=== PATIENT | male | born 1940 | race Caucasian/White ===

== ENCOUNTER 2019-01-21 06:29 | Inpatient (IN) ==
[2019-01-21] MEDS ORDERED: Amiodarone 150 MG in D5% in Water 100 ML IVPB ONE (06:43)
--- NOTE | 2019-01-21 06:45 | Emergency Department Note ---
Disposition Condition: Fair Arrhythmia/Palpitations HPI - General Chief Complaint: ED Arrhythmia/Palpitations Stated Complaint: poss runs of V tach during sleep study Time Seen by Provider: 01/21/19 06:32 - Related Data Allergies Allergy/AdvReac Type Severity Reaction Status Date / Time No Known Allergies Allergy Unverified 01/21/19 03:33 Past Medical History - Past Medical History Medical history: Reports: other - Social History Smoking Status: Never smoker Smokeless Tobacco Status: No Alcohol use: Reports: none
[2019-01-21] MEDS ORDERED: Amiodarone Premix 150 MG/100 ML BAG IVPB ONE (06:46)
[2019-01-21] MEDS ORDERED: Amiodarone Premix 360 MG/200 ML BAG IVC ONE (06:47)
--- NOTE | 2019-01-21 06:49 | Emergency Department Note ---
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 He reports having to have a repeat sleep study done for his new insurance so he can keep his c-pap machine. He slept about 2 or 3 hours and was awakened by the tech who said he was going to be taken to the ED because his heart was "beating funny." He denies any complaints. Onset (ago): hour(s) (2AM per [facility]) Time: 02:00 Duration: intermittent Context: occurred during rest Arrhythmia History: other (none) Associated symptoms: Reports: denies other symptoms. Denies: chest pain, shortness of breath, syncope, near-syncope, nausea, vomiting, anxiety, diaphoresis, cough, paresthesias, muscle cramps Treatments prior to arrival: other (none) - Related Data Home Medications Medication Instructions Recorded Confirmed Alfuzosin HCl [Uroxatral] 10 mg PO DAILY 01/21/19 01/21/19 Aspirin [Lo-Dose Aspirin EC] 81 mg PO DAILY 01/21/19 01/21/19 Atorvastatin [Lipitor] 10 mg PO QPM 01/21/19 01/21/19 Cholecalciferol (D-3) [Vitamin D] 1,000 unit PO DAILY 01/21/19 01/21/19 Empagliflozin [Jardiance] 10 mg PO DAILY 01/21/19 01/21/19 Insulin DETEMIR [Levemir Flextouch] 40 units PO HS 01/21/19 01/21/19 Insulin LISPRO [Humalog Kwikpen 10 units PO QPM 01/21/19 01/21/19 U-100] Lisinopril-HCTZ 20-12.5 [Prinzide 1 tab PO DAILY 01/21/19 01/21/19 20-12.5] Metformin HCl 500 mg PO BID 01/21/19 01/21/19 Tamsulosin HCl [Flomax] 0.4 mg PO DAILY 01/21/19 01/21/19 Allergies Allergy/AdvReac Type Severity Reaction Status Date / Time No Known Allergies Allergy Unverified 01/21/19 21:41 All systems ED: reviewed and negative except as stated. Review of Systems: As Per HPI Constitutional: Denies: fever, chills, weakness, weight change, night sweats Eyes: Denies: vision change ENT ED: Denies: throat pain, congestion, dysphagia Cardiovascular: Denies: chest pain, palpitations, dyspnea on exertion, orthopnea, edema, syncope, paroxysmal nocturnal dyspnea Respiratory: Denies: cough, dyspnea, wheezes, hemoptysis, stridor, sputum production Gastrointestinal: Denies: abdominal pain, nausea, vomiting, diarrhea Musculoskeletal: Denies: back pain, neck pain, joint swelling, arthralgia Integumentary: Denies: rash Neurological: Denies: headache, weakness, numbness, paresthesias, confusion, vertigo Hematological/Lymphatic: Denies: easy bleeding, easy bruising Past Medical History - Past Medical History Attestation: Yes The following information was validated with the patient. Source: patient Medical history: Reports: atrial fibrillation, hyperlipidemia, hypertension, other Surgical history: Reports: non-contributory Psychiatric history: Reports: no psych history - Social History Smoking Status: Never smoker Smokeless Tobacco Status: No Alcohol use: Reports: none Drug use: Reports: none Physical Exam - General Limitations: no limitations General appearance: alert, in no apparent distress - Head Head exam: atraumatic, normocephalic, normal inspection - Eye Eye exam: Present: normal appearance. Absent: scleral icterus, conjunctival injection, periorbital swelling - ENT ENT exam: mucous membranes moist - Respiratory Respiratory exam: Present: normal lung sounds bilaterally. Absent: respiratory distress - Cardiovascular Cardiovascular exam: Present: regular rate, irregular rhythm - Abdominal Exam Abdominal exam: Present: soft, Non-Tender. Absent: distention, rebound, rigidity, ascites, mass - Extremities Exam Extremities exam: Present: normal capillary refill. Absent: pedal edema - Neurological Exam Neurological exam: Present: alert, oriented X3, CN II-XII intact - Psychiatric Psychiatric exam: Present: normal affect, normal mood - Skin Skin exam: Present: warm, dry, intact, normal color Course Course Narrative: Patient from Sleep lab for eval of v-tach. He is having intermittent, frequent runs of v-tach. No symptoms, no complaints. Patient placed on monitor, pads applied, amiodorone ordered. - Reevaluation(s) Reevaluation #1: Repeat BP is 128/67. The Amiodorone bolus is running now. Patient continues to be asymptomatic. Time: 07:00 - Consultations Consultation #1: Cardiology paged Time: 07:00 Consultation #2: Case discussed with Dr. Garcia. She recommends admit to medicine with cards consult. Time: 07:21 Vital Signs Temperature 98.7 F 01/21/19 06:47 Pulse Rate 82 01/21/19 06:47 Respiratory Rate 18 01/21/19 06:47 Blood Pressure 152/119 01/21/19 06:47 O2 Sat by Pulse Oximetry 97 01/21/19 06:47 Temperature 97.0 F L 01/23/19 03:10 Pulse Rate 50 01/23/19 03:10 Respiratory Rate 17 01/23/19 05:40 Blood Pressure 129/79 01/23/19 03:10 O2 Sat by Pulse Oximetry 98 01/23/19 05:40 Oxygen Delivery Oxygen Delivery Room Air Arrhythmia/Palpitations - Medical Records Medical records reviewed: Yes I reviewed the patient's medical records. - Lab Data Lab results reviewed: Yes I reviewed the patient's lab results. Lab results narrative: Laboratory Last Values WBC 8.0 K/mcL (4.3-11.1) 01/21/19 06:47 RBC 5.19 M/mcL (4.19-5.50) 01/21/19 06:47 Hgb 15.3 g/dL (12.9-16.9) 01/21/19 06:47 Hct 46.6 % (37.5-50.1) 01/21/19 06:47 MCV 89.8 fL (83.0-100.0) 01/21/19 06:47 MCH 29.5 pg (28.0-33.3) 01/21/19 06:47 MCHC 32.8 g/dL (31.6-35.5) 01/21/19 06:47 RDW 13.6 % (11.5-14.5) 01/21/19 06:47 Plt Count 224 K/mcL (140-400) 01/21/19 06:47 MPV 10.9 fL (9.4-12.4) 01/21/19 06:47 Immature Gran % 0.3 % (0-4) 01/21/19 06:47 Seg Neutrophils % 56.7 % 01/21/19 06:47 Lymphocytes % 30.4 % 01/21/19 06:47 Monocytes % 9.9 % 01/21/19 06:47 Eosinophils % 2.1 % 01/21/19 06:47 Basophils % 0.6 % 01/21/19 06:47 Neutrophils # 4.5 K/mcL (1.6-8.9) 01/21/19 06:47 Lymphocytes # 2.4 K/mcL (0.6-4.6) 01/21/19 06:47 Monocytes # 0.8 K/mcL (0.0-1.3) 01/21/19 06:47 Eosinophils # 0.2 K/mcL (0.0-0.6) 01/21/19 06:47 Basophils # 0.1 K/mcL (0.0-0.2) 01/21/19 06:47 PT 11.5 Seconds (9.4-12.1) 01/21/19 06:47 INR 1.0 01/21/19 06:47 APTT 32.7 Seconds (26.0-36.0) 01/21/19 06:47 Sodium 139 mEq/L (136-145) 01/21/19 06:47 Potassium 3.5 mEq/L (3.5-5.1) 01/21/19 06:47 Chloride 108 mEq/L (98-107) H 01/21/19 06:47 Carbon Dioxide 27 mEq/L (23-29) 01/21/19 06:47 BUN 18 mg/dL (8-23) 01/21/19 06:47 Creatinine 0.90 mg/dL (0.70-1.30) 01/21/19 06:47 Est GFR ( Amer) > 60 (> 60) 01/21/19 06:47 Est GFR (Non-Af Amer) > 60 (> 60) 01/21/19 06:47 BUN/Creatinine Ratio 20 (6-26) 01/21/19 06:47 Glucose 121 mg/dL (70-105) H 01/21/19 06:47 Calculated Osmolality 291 (280-300) 01/21/19 06:47 Calcium 9.3 mg/dL (8.6-10.3) 01/21/19 06:47 Magnesium 2.2 mg/dL (1.6-2.6) 01/21/19 06:47 Troponin I < 0.03 ng/mL (< 0.04) 01/21/19 06:47 TSH 2.586 mcIU/mL (0.340-5.600) 01/21/19 06:47 Result diagrams: 01/23/19 01:23 01/23/19 01:23 Lab Results 01/21/19 01/21/19 01/21/19 Range/Units 06:47 06:47 06:47 WBC 8.0 (4.3-11.1) K/mcL RBC 5.19 (4.19-5.50) M/mcL Hgb 15.3 (12.9-16.9) g/dL Hct 46.6 (37.5-50.1) % MCV 89.8 (83.0-100.0) fL MCH 29.5 (28.0-33.3) pg MCHC 32.8 (31.6-35.5) g/dL RDW 13.6 (11.5-14.5) % Plt Count 224 (140-400) K/mcL MPV 10.9 (9.4-12.4) fL Immature Gran % 0.3 (0-4) % Seg Neutrophils % 56.7 % Lymphocytes % 30.4 % Monocytes % 9.9 % Eosinophils % 2.1 % Basophils % 0.6 % Neutrophils # 4.5 (1.6-8.9) K/mcL Lymphocytes # 2.4 (0.6-4.6) K/mcL Monocytes # 0.8 (0.0-1.3) K/mcL Eosinophils # 0.2 (0.0-0.6) K/mcL Basophils # 0.1 (0.0-0.2) K/mcL PT 11.5 (9.4-12.1) Seconds INR 1.0 APTT 32.7 (26.0-36.0) Seconds Sodium 139 (136-145) mEq/L Potassium 3.5 (3.5-5.1) mEq/L Chloride 108 H (98-107) mEq/L Carbon Dioxide 27 (23-29) mEq/L BUN 18 (8-23) mg/dL Creatinine 0.90 (0.70-1.30) mg/dL Est GFR ( Amer) > 60 (> 60) Est GFR (Non-Af Amer) > 60 (> 60) BUN/Creatinine Ratio 20 (6-26) Glucose 121 H (70-105) mg/dL POC Glucose (70-99) mg/dL Calculated Osmolality 291 (280-300) Calcium 9.3 (8.6-10.3) mg/dL Magnesium 2.2 (1.6-2.6) mg/dL Total Bilirubin (0.3-1.0) mg/dL AST (13-39) Units/L ALT (7-52) Units/L Alkaline Phosphatase (34-104) Units/L Troponin I < 0.03 (< 0.04) ng/mL Serum Total Protein (6.4-8.9) g/dL Albumin (3.5-5.7) g/dL Globulin (2.4-3.5) g/dL Albumin/Globulin Ratio (1.1-2.2) TSH 2.586 (0.340-5.600) mcIU/mL 01/21/19 01/21/19 01/21/19 Range/Units 11:10 16:24 19:39 WBC (4.3-11.1) K/mcL RBC (4.19-5.50) M/mcL Hgb (12.9-16.9) g/dL Hct (37.5-50.1) % MCV (83.0-100.0) fL MCH (28.0-33.3) pg MCHC (31.6-35.5) g/dL RDW (11.5-14.5) % Plt Count (140-400) K/mcL MPV (9.4-12.4) fL Immature Gran % (0-4) % Seg Neutrophils % % Lymphocytes % % Monocytes % % Eosinophils % % Basophils % % Neutrophils # (1.6-8.9) K/mcL Lymphocytes # (0.6-4.6) K/mcL Monocytes # (0.0-1.3) K/mcL Eosinophils # (0.0-0.6) K/mcL Basophils # (0.0-0.2) K/mcL PT (9.4-12.1) Seconds INR APTT (26.0-36.0) Seconds Sodium (136-145) mEq/L Potassium (3.5-5.1) mEq/L Chloride (98-107) mEq/L Carbon Dioxide (23-29) mEq/L BUN (8-23) mg/dL Creatinine (0.70-1.30) mg/dL Est GFR ( Amer) (> 60) Est GFR (Non-Af Amer) (> 60) BUN/Creatinine Ratio (6-26) Glucose (70-105) mg/dL POC Glucose 170 H 224 H 161 H (70-99) mg/dL Calculated Osmolality (280-300) Calcium (8.6-10.3) mg/dL Magnesium (1.6-2.6) mg/dL Total Bilirubin (0.3-1.0) mg/dL AST (13-39) Units/L ALT (7-52) Units/L Alkaline Phosphatase (34-104) Units/L Troponin I (< 0.04) ng/mL Serum Total Protein (6.4-8.9) g/dL Albumin (3.5-5.7) g/dL Globulin (2.4-3.5) g/dL Albumin/Globulin Ratio (1.1-2.2) TSH (0.340-5.600) mcIU/mL 01/22/19 01/22/19 01/22/19 Range/Units 03:14 03:14 07:52 WBC 8.2 (4.3-11.1) K/mcL RBC 4.82 (4.19-5.50) M/mcL Hgb 14.3 (12.9-16.9) g/dL Hct 44.0 (37.5-50.1) % MCV 91.3 (83.0-100.0) fL MCH 29.7 (28.0-33.3) pg MCHC 32.5 (31.6-35.5) g/dL RDW 13.8 (11.5-14.5) % Plt Count 191 (140-400) K/mcL MPV 10.8 (9.4-12.4) fL Immature Gran % 0.2 (0-4) % Seg Neutrophils % 59.6 % Lymphocytes % 27.9 % Monocytes % 9.0 % Eosinophils % 2.7 % Basophils % 0.6 % Neutrophils # 4.9 (1.6-8.9) K/mcL Lymphocytes # 2.3 (0.6-4.6) K/mcL Monocytes # 0.7 (0.0-1.3) K/mcL Eosinophils # 0.2 (0.0-0.6) K/mcL Basophils # 0.1 (0.0-0.2) K/mcL PT (9.4-12.1) Seconds INR APTT (26.0-36.0) Seconds Sodium 137 (136-145) mEq/L Potassium 3.8 (3.5-5.1) mEq/L Chloride 108 H (98-107) mEq/L Carbon Dioxide 23 (23-29) mEq/L BUN 21 (8-23) mg/dL Creatinine 0.84 (0.70-1.30) mg/dL Est GFR ( Amer) > 60 (> 60) Est GFR (Non-Af Amer) > 60 (> 60) BUN/Creatinine Ratio 25 (6-26) Glucose 144 H (70-105) mg/dL POC Glucose 157 H (70-99) mg/dL Calculated Osmolality 290 (280-300) Calcium 8.8 (8.6-10.3) mg/dL Magnesium 2.4 (1.6-2.6) mg/dL Total Bilirubin 0.5 (0.3-1.0) mg/dL AST 13 (13-39) Units/L ALT 15 (7-52) Units/L Alkaline Phosphatase 45 (34-104) Units/L Troponin I (< 0.04) ng/mL Serum Total Protein 6.3 L (6.4-8.9) g/dL Albumin 3.6 (3.5-5.7) g/dL Globulin 2.7 (2.4-3.5) g/dL Albumin/Globulin Ratio 1.3 (1.1-2.2) TSH (0.340-5.600) mcIU/mL 01/22/19 Range/Units 11:58 WBC (4.3-11.1) K/mcL RBC (4.19-5.50) M/mcL Hgb (12.9-16.9) g/dL Hct (37.5-50.1) % MCV (83.0-100.0) fL MCH (28.0-33.3) pg MCHC (31.6-35.5) g/dL RDW (11.5-14.5) % Plt Count (140-400) K/mcL MPV (9.4-12.4) fL Immature Gran % (0-4) % Seg Neutrophils % % Lymphocytes % % Monocytes % % Eosinophils % % Basophils % % Neutrophils # (1.6-8.9) K/mcL Lymphocytes # (0.6-4.6) K/mcL Monocytes # (0.0-1.3) K/mcL Eosinophils # (0.0-0.6) K/mcL Basophils # (0.0-0.2) K/mcL PT (9.4-12.1) Seconds INR APTT (26.0-36.0) Seconds Sodium (136-145) mEq/L Potassium (3.5-5.1) mEq/L Chloride (98-107) mEq/L Carbon Dioxide (23-29) mEq/L BUN (8-23) mg/dL Creatinine (0.70-1.30) mg/dL Est GFR ( Amer) (> 60) Est GFR (Non-Af Amer) (> 60) BUN/Creatinine Ratio (6-26) Glucose (70-105) mg/dL POC Glucose 152 H (70-99) mg/dL Calculated Osmolality (280-300) Calcium (8.6-10.3) mg/dL Magnesium (1.6-2.6) mg/dL Total Bilirubin (0.3-1.0) mg/dL AST (13-39) Units/L ALT (7-52) Units/L Alkaline Phosphatase (34-104) Units/L Troponin I (< 0.04) ng/mL Serum Total Protein (6.4-8.9) g/dL Albumin (3.5-5.7) g/dL Globulin (2.4-3.5) g/dL Albumin/Globulin Ratio (1.1-2.2) TSH (0.340-5.600) mcIU/mL - Radiology Data Radiology results reviewed: Yes I reviewed the patient's radiology results. Chest X-Ray 01/21/19 07:03 IMPRESSION: No acute cardiopulmonary disease. D/ / 01/21/2019 09:23:23 Lawrence Reyes MD / angie Interpreting Provider: Lawrence Reyes MD - EKG Data EKG attestation: Yes I reviewed and interpreted this EKG. Rate: normal Rhythm: A.Fib, V. tach (unsustained), PVC's When compared to previous EKG there are: previous EKG unavailable Interpretation: other Attestation Statement - Attestation Attestation: I, Oc Jean DO have provided [id number] time during the care of this patient. Detailed review the presentation, symptoms, medical history were discussed and reviewed with the advanced practice provider Tricia Roa PA-C/DRAMATIC ARTS HISTORIAN. Medical intervention labs and imaging studies were reviewed in detail. See full documentation of physical exam and course of care in the advanced practice provider's note. I agree with the determined course of care, medical intervention and disposition put forth by the advanced practice provider. See below documentation for changes or alterations in documentation.
[2019-01-21 07:03] LABS: Basophils # 0.1 K/mcL (0.0-0.2); Basophils % 0.6 %; Eosinophils # 0.2 K/mcL (0.0-0.6); Eosinophils % 2.1 %; Hematocrit 46.6 % (37.5-50.1); Hemoglobin 15.3 g/dL (12.9-16.9); Immature Granulocytes % 0.3 % (0-4); Lymphocytes # 2.4 K/mcL (0.6-4.6); Lymphocytes % 30.4 %; Mean Corpuscular HGB Conc 32.8 g/dL (31.6-35.5); Mean Corpuscular Hemoglobin 29.5 pg (28.0-33.3); Mean Corpuscular Volume 89.8 fL (83.0-100.0); Mean Platelet Volume 10.9 fL (9.4-12.4); Monocytes # 0.8 K/mcL (0.0-1.3); Monocytes % 9.9 %; Neutrophils # 4.5 K/mcL (1.6-8.9); Platelet Count 224 K/mcL (140-400); Red Blood Count 5.19 M/mcL (4.19-5.50); Red Cell Distribution Width 13.6 % (11.5-14.5); Segmented Neutrophils % 56.7 %
[2019-01-21 07:10] LABS: Prothrombin Time 11.5 Seconds (9.4-12.1)
[2019-01-21 07:13] LABS: Activated Partial Thrombo Time 32.7 Seconds (26.0-36.0)
[2019-01-21 07:25] LABS: BUN/Creatinine Ratio 20 (6-26); Blood Urea Nitrogen 18 mg/dL (8-23); Calcium 9.3 mg/dL (8.6-10.3); Carbon Dioxide 27 mEq/L (23-29); Chloride 108 mEq/L (98-107); Glucose 121 mg/dL (70-105); Osmolality,Calculated 291 (280-300); Potassium 3.5 mEq/L (3.5-5.1); Sodium 139 mEq/L (136-145); eGFR For African Americans > 60 (> 60); eGFR For Non-African Americans > 60 (> 60)
[2019-01-21 07:26] LABS: Troponin I < 0.03 ng/mL (< 0.04)
--- NOTE | 2019-01-21 07:33 | Emergency Department Note ---
Disposition Clinical Impression: Ventricular tachycardia (paroxysmal) Disposition: Admitted As Inpatient Condition: Fair Referrals: NONE,PCP [Primary Care Provider] - Forms: ED Satisfaction Letter Time of Disposition: 08:28 General Adult HPI - General Chief complaint: ED Chest Pain Stated complaint: poss runs of V tach during sleep study Time Seen by Provider: 01/21/19 06:32 Source: patient, other (Sleep pathology laboratory technologist) Mode of arrival: wheelchair Limitations: no limitations - History of Present Illness Pain Scale: 0 - Related Data Home Medications Medication Instructions Recorded Confirmed Alfuzosin HCl [Uroxatral] 10 mg PO DAILY 01/21/19 01/21/19 Aspirin [Lo-Dose Aspirin EC] 81 mg PO DAILY 01/21/19 01/21/19 Atorvastatin Calcium [Lipitor] 40 mg PO DAILY 01/21/19 01/21/19 Cholecalciferol (D-3) [Vitamin D] 1,000 unit PO DAILY 01/21/19 01/21/19 Humalog 01/21/19 Jardiance 01/21/19 Levemir Flextouch 01/21/19 Lisinopril [Zestril] 10 mg PO DAILY 01/21/19 01/21/19 Tamsulosin HCl [Flomax] 0.4 mg PO DAILY 01/21/19 01/21/19 metFORMIN 01/21/19 Allergies Allergy/AdvReac Type Severity Reaction Status Date / Time No Known Allergies Allergy Unverified 01/21/19 03:33 Past Medical History - Past Medical History Medical history: Reports: diabetes, other Psychiatric history: Reports: no psych history - Social History Smoking Status: Former smoker Smokeless Tobacco Status: No Alcohol use: Reports: none Drug use: Reports: none Physical Exam - General Limitations: no limitations General appearance: alert, in no apparent distress Course Vital Signs Temperature 98.7 F 01/21/19 06:47 Pulse Rate 82 01/21/19 06:47 Respiratory Rate 18 01/21/19 06:47 Blood Pressure 152/119 01/21/19 06:47 O2 Sat by Pulse Oximetry 97 01/21/19 06:47 Temperature 98.7 F 01/21/19 06:47 Pulse Rate 68 01/21/19 07:30 Respiratory Rate 18 01/21/19 07:30 Blood Pressure 140/88 01/21/19 07:30 O2 Sat by Pulse Oximetry 97 01/21/19 07:30 Oxygen Delivery Oxygen Delivery Room Air Medical Decision Making - Lab Data Result diagrams: 01/21/19 06:47 01/21/19 06:47 Lab Results 01/21/19 01/21/19 01/21/19 Range/Units 06:47 06:47 06:47 WBC 8.0 (4.3-11.1) K/mcL RBC 5.19 (4.19-5.50) M/mcL Hgb 15.3 (12.9-16.9) g/dL Hct 46.6 (37.5-50.1) % MCV 89.8 (83.0-100.0) fL MCH 29.5 (28.0-33.3) pg MCHC 32.8 (31.6-35.5) g/dL RDW 13.6 (11.5-14.5) % Plt Count 224 (140-400) K/mcL MPV 10.9 (9.4-12.4) fL Immature Gran % 0.3 (0-4) % Seg Neutrophils % 56.7 % Lymphocytes % 30.4 % Monocytes % 9.9 % Eosinophils % 2.1 % Basophils % 0.6 % Neutrophils # 4.5 (1.6-8.9) K/mcL Lymphocytes # 2.4 (0.6-4.6) K/mcL Monocytes # 0.8 (0.0-1.3) K/mcL Eosinophils # 0.2 (0.0-0.6) K/mcL Basophils # 0.1 (0.0-0.2) K/mcL PT 11.5 (9.4-12.1) Seconds INR 1.0 APTT 32.7 (26.0-36.0) Seconds Sodium 139 (136-145) mEq/L Potassium 3.5 (3.5-5.1) mEq/L Chloride 108 H (98-107) mEq/L Carbon Dioxide 27 (23-29) mEq/L BUN 18 (8-23) mg/dL Creatinine 0.90 (0.70-1.30) mg/dL Est GFR ( Amer) > 60 (> 60) Est GFR (Non-Af Amer) > 60 (> 60) BUN/Creatinine Ratio 20 (6-26) Glucose 121 H (70-105) mg/dL Calculated Osmolality 291 (280-300) Calcium 9.3 (8.6-10.3) mg/dL Troponin I < 0.03 (< 0.04) ng/mL TSH 2.586 (0.340-5.600) mcIU/mL Critical Care Time Critical Care Time: Yes Total Critical Care Time: 45 Attestation: Critical care performed: Time is exclusive of separately billable procedures. Time includes: direct patient care, patient reassessment, coordination of patient care, interpretation of data (laboratory data, radiology data, and respiratory data), review of patient's medical records, medical consultation and documentation of patient care. Procedures included in critical care time: Procedures excluded from critical care time: Attestation Statement - Attestation Attestation: I, Oc Jean DO have provided [id number] time during the care of this patient. Detailed review the presentation, symptoms, medical history were discussed and reviewed with the advanced practice provider Tricia Roa PA-C/PHAN. Medical intervention labs and imaging studies were reviewed in detail. See full documentation of physical exam and course of care in the advanced practice provider's note. I agree with the determined course of care, medical intervention and disposition put forth by the advanced practice provider. See below documentation for changes or alterations in documentation. 78-year-old male presents emergency room for evaluation of abnormal cardiac rhythm. Patient was receiving sleep study this morning when the optimal to monitor for that study they noticed that the patient had unsustained runs of ventricular tachycardia. Patient was asymptomatic during the entire event but the recommended he come to the emergency room for evaluation. Patient denies any preceding symptoms at last several days to weeks. Currently denying chest pain shortness of breath fevers chills nausea vomiting or diarrhea. He does not have a headache or vision change. Denies any changes in his medications falls trauma or injury. Vital signs during initial presentation evaluation are stable. Patient is otherwise in no distress he is alert he is oriented he is answering questions. 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 He also has several episodes of PVC. Lungs are clear. Heart is regular. Abdomen is soft no pulsatile masses or lesions. Patient has stable incisional lines in the right upper quadrant and umbilicus area where he had his gallbladder removed as well as an umbilical hernia. No signs of hernia or other abnormality. Extremities otherwise normal with no signs of pitting edema or swelling. Patient has no other complaints or symptoms. Amiodarone drip along with labs including CBC chemistry troponin electrolytes were collected. On-call railroad commissioner Dr. Angeles Garcia was contacted and she agreed with the described intervention and the and recommended admission the hospital cardiology consultation. Consultation will be placed and admission process to be established once the remainder the workup is completed. EKG is reviewed by myself in documented in the advanced practice provider's note. See detailed documentation the physical exam, medical intervention, medical decision-making and disposition in the note. Approximately 45 minutes of critical care applied the patient's multidisciplinary intervention medical management. [id number] Malin reviewed the case here in the ED. Requested 2mg of magnesium, potassium, repeat EKG at this time. No other recommendations or concerns. Bedside evaluation was completed and repeat EKG is reviewed by myself showing sinus rhythm multifocal PVCs. No acute morphology changes or signs of ischemia this time. Patient will be admitted for monitoring. Hospitalist has agreed for admission this time and no other recommendations. Patient will be monitored here in the emergency department until admission process is established
[2019-01-21 07:39] LABS: Thyroid Stimulating Hormone 2.586 mcIU/mL (0.340-5.600)
[2019-01-21] MEDS ORDERED: Potassium Chloride Elixir 20 MEQ/15 ML UDC PO ONE (07:56)
[2019-01-21] MEDS ORDERED: Potassium Chloride 20 MEQ, Lidocaine 1% 2 ML in 0.9 % Sodium Chloride 250 ML IVPB ONE (08:06)
[2019-01-21] MEDS ORDERED: *HR* Amiodarone 450 MG/9 ML VIAL IVC ONE (08:15)
[2019-01-21] MEDS ORDERED: Naloxone 0.4 MG/ML INJ IVP PRN (08:34)
[2019-01-21] MEDS ORDERED: Acetaminophen 325 MG TABLET PO PRN (08:34)
[2019-01-21] MEDS ORDERED: Ondansetron 4 MG/2 ML VIAL IVP PRN (08:34)
[2019-01-21 08:37] LABS: Magnesium 2.2 mg/dL (1.6-2.6)
[2019-01-21] MEDS ORDERED: D5% in Water 1,000 ML IVC PRN (08:39)
[2019-01-21] MEDS ORDERED: Dextrose Gel 15 GM/37.5 ML TUBE PO PRN ×2 (08:39)
[2019-01-21] MEDS ORDERED: *HR* Dextrose 50 % in Water (Syg) 50 ML SYRINGE IVP PRN (08:39)
--- NOTE | 2019-01-21 08:54 | Internal Med History&Physical ---
Date of Encounter: 01/21/19 Time of Encounter: 08:15 Internal Medicine - H&P: HPI Admitted From: Emergency Dept Plans for Post Hospital Care: Home History of present illness: Mr. Moore is a 78 year old male with past medical history significant for diabetes, hypertension, hyperlipidemia, BPH, obstructive sleep apnea on CPAP therapy who was sent to the ED to be evaluated a for ventricular arrhythmia which was noted while he was undergoing sleep study. He stated that he goes for sleep study every 5-7 years given his history of noise a CPAP therapy and while he was undergoing study overnight he was told by the staff at the sleep clinic that he had abnormal heart rhythm noted on telemetry. Patient stated that he was not symptomatic denies any prior history of cardiac arrhythmia. 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 However, overall he stated that what ever exertion he felt afterwards he attributed to the aging process and being old. At the ED he was noted on telemetry to have persistent V. tach however he remained asymptomatic. The ED physician discussed the case with the reproducer and patient was started on amiodarone drip which helped terminated his V. tach. Among his laboratory parameters was a CBC which was unremarkable, BMP also unremarkable although his potassium was 3.5 magnesium is 2.2 initial troponin are unremarkable and his TSH was within normal limits. A repeat EKG shows sinus rhythm with occasional PVCs. Past Med Surg Social Fam HX - Past Medical History Medical history: diabetes, hyperlipidemia, hypertension, other (jacob, bph) Additional medical history: has hearing aids Psychiatric history: no psych history - Social History Smoking Status: Former smoker Smokeless Tobacco Status: No Alcohol use: none Drug use: none Internal Medicine - H&P: Meds Alfuzosin HCl [Uroxatral] 10 mg PO DAILY 01/21/19 [History] Aspirin [Lo-Dose Aspirin EC] 81 mg PO DAILY 01/21/19 [History] Atorvastatin Calcium [Lipitor] 40 mg PO DAILY 01/21/19 [History] Cholecalciferol (D-3) [Vitamin D] 1,000 unit PO DAILY 01/21/19 [History] Humalog 01/21/19 [History] Jardiance 01/21/19 [History] Levemir Flextouch 01/21/19 [History] Lisinopril [Zestril] 10 mg PO DAILY 01/21/19 [History] Tamsulosin HCl [Flomax] 0.4 mg PO DAILY 01/21/19 [History] metFORMIN 01/21/19 [History] Allergy/AdvReac Type Severity Reaction Status Date / Time No Known Allergies Allergy Unverified 01/21/19 03:33 Review of systems: GENERAL: Denies fever, chills, fatigue or night sweats. DERMATOLOGIC: Denies itch, rash or lesions HEENT: Denies headache, blurriness, diplopia or decreased visual acuity, ear pain, tinnitus, rhinorrhea, sinus tenderness or sore throat RESPIRATORY: Denies SOB, cough, hemoptysis or pleuritic chest pain CARDIOVASCULAR: Denies chest pain, LE edema, palpitation or syncope GASTRO INTESTINAL: Denies cramps, nausea/vomiting, diarrhea or constipation, melena MUSCULOSKELATAL: Denies muscle pain/weakness, joint tenderness/pain or swelling PSYCH: Denies worsening anxiety, or depression NEURO: Denies vertigo, dizziness, or ataxia GENITURINARY: Denies dysuria, nocturia or urinary incontinence - Constitutional Vitals: Temp Pulse Resp BP Pulse Ox 98.7 F 68 14 144/76 97 01/21/19 06:47 01/21/19 07:30 01/21/19 08:22 01/21/19 08:22 01/21/19 07:30 Exam: GENERAL: Obese male NAD, A&O x3, pleasant and conversant SKIN: [place] warm dry No skin lesions or rashes, non-jaundiced EYES: EOMI, PERRLA, no sclera icterus HENT: Head atraumatic, no facial asymmetry, frontal and maxillary sinus non- tender, normal hearing, oropharynx and mucosa moist and without any exudates NECK: No cervical lymphadenopathy, trachea midline, thyroid is palpable does not appear enlarged, healed posterior surgical neck scar noted LUNGS: vesicular breath sounds, clear to auscultation, no wheeze, rhonchi, rales or crackles. Non labored respirations HEART: Normal rate and rhythm, no murmurs or rubs ABDOMEN: Obese soft, non-tender, non-distended, bowel sounds x 4 normoactive, ventral hernia appreciated EXTRMITIES: No LE asymmetry, No LE edema, pedal pulses 1+ and radial pulses 2 + and equal bilaterally NEURO: Speech and comprehension appears intact. PSYCH: Cooperative, non- anxious or irritable, mood and affect is appropriate Internal Med - H&P Results - Labs CBC & Chem 7: 01/21/19 06:47 01/21/19 06:47 Labs: Short CBC 01/21/19 Range/Units 06:47 WBC 8.0 (4.3-11.1) K/mcL Hgb 15.3 (12.9-16.9) g/dL Hct 46.6 (37.5-50.1) % Plt Count 224 (140-400) K/mcL Neutrophils # 4.5 (1.6-8.9) K/mcL BMP 01/21/19 06:47 Sodium 139 Potassium 3.5 Chloride 108 H Carbon Dioxide 27 BUN 18 Creatinine 0.90 Glucose 121 H Calcium 9.3 Cardiac Enzymes 01/21/19 Range/Units 06:47 Troponin I < 0.03 (< 0.04) ng/mL - Impressions ITS Impressions Chest X-Ray 01/21/19 07:03 IMPRESSION: No acute cardiopulmonary disease D/ / Lawrence Reyes MD / Lawrence Reyes MD Interpreting Provider: Lawrence Reyes MD - Assessment and Plan (1) Ventricular tachycardia (paroxysmal) Current Visit: Yes Status: Acute Assessment and plan: Patient with asymptomatic ventricular tachycardia noted while he was undergoing sleep study earlier this morning. He remained asymptomatic at the ED surrounding the etiology remains unclear denies any prior history of cardiac arrhythmias. TSH was unremarkable magnesium 2.2 and potassium 3.5 which was supplemented at the ED for goal potassium greater than 4. He does endorse a history of JACOB on CPAP therapy which itself comes with the sequela of cardiovascular complications. Although the patient reports being compliant. Cardiology has been consulted appreciate the input, for now will continue amiodarone drip, will check LFTs in the morning. 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 (3) Hypertension Current Visit: Yes Status: Acute Assessment and plan: Normotensive will continue his lisinopril Qualifiers: Hypertension type: essential hypertension Qualified Code(s): I10 - Ess ential (primary) hypertension (4) Hyperlipidemia Current Visit: Yes Status: Acute Assessment and plan: Continue atorvastatin Qualifiers: Hyperlipidemia type: unspecified Qualified Code(s): E78.5 - Hyperlipidemia, unspecified (5) BPH (benign prostatic hyperplasia) Current Visit: Yes Status: Acute Assessment and plan: Continue tamsulosin monitor strict I's and O's Qualifiers: Lower urinary tract symptom detail: unspecified Qualified Code(s): N40.1 - Benign prostatic hyperplasia with lower urinary tract symptoms (6) JACOB on CPAP Current Visit: Yes Status: Acute Assessment and plan: Continue to encourage CPAP use, order has been placed with CPAP and respiratory therapy consult (7) DVT prophylaxis Current Visit: Yes Status: Acute Assessment and plan: Heparin per protocol (8) Morbid obesity with BMI of 40.0-44.9, adult Current Visit: Yes Status: Acute Assessment and plan: Continue to encourage lifestyle modification-diet and exercise - Time Spent With Patient Total time spent is greater than 50% in coordination of care (as documented) at patient's floor/unit and/or counseling patient:
[2019-01-21] MEDS: Cholecalciferol (D-3) 1,000 UNIT (25MCG) TABLET PO SCH (09:47)
[2019-01-21] MEDS: Aspirin Enteric Coated 81 MG Tablet PO SCH (09:48)
--- NOTE | 2019-01-21 10:22 | Electrocardiograph Report ---
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
[2019-01-21] MEDS: Insulin LISPRO 300 UNITS/3 ML VIAL SQ SCH ×2 (11:59→17:26)
[2019-01-21] MEDS ORDERED: Amiodarone Premix 360 MG/200 ML BAG IVC SCH (13:30)
[2019-01-21] MEDS: *HR* Heparin 5,000 UNIT/ML VIAL SQ SCH ×2 (13:32→21:17)
[2019-01-21] MEDS: *HR* Amiodarone 200 MG TABLET PO SCH (21:17)
[2019-01-21] MEDS: Insulin DETEMIR 100 UNIT/ML X5UNITS SQ SCH (21:17)
[2019-01-22 03:41] LABS: Basophils # 0.1 K/mcL (0.0-0.2); Basophils % 0.6 %; Eosinophils # 0.2 K/mcL (0.0-0.6); Eosinophils % 2.7 %; Hemoglobin 14.3 g/dL (12.9-16.9); Immature Granulocytes % 0.2 % (0-4); Lymphocytes # 2.3 K/mcL (0.6-4.6); Lymphocytes % 27.9 %; Mean Corpuscular HGB Conc 32.5 g/dL (31.6-35.5); Mean Corpuscular Hemoglobin 29.7 pg (28.0-33.3); Mean Corpuscular Volume 91.3 fL (83.0-100.0); Mean Platelet Volume 10.8 fL (9.4-12.4); Monocytes # 0.7 K/mcL (0.0-1.3); Neutrophils # 4.9 K/mcL (1.6-8.9); Platelet Count 191 K/mcL (140-400); Red Blood Count 4.82 M/mcL (4.19-5.50); Red Cell Distribution Width 13.8 % (11.5-14.5); Segmented Neutrophils % 59.6 %; White Blood Count 8.2 K/mcL (4.3-11.1)
[2019-01-22 03:56] LABS: Alanine Aminotransferase 15 Units/L (7-52); Albumin 3.6 g/dL (3.5-5.7); Albumin/Globulin Ratio 1.3 (1.1-2.2); Alkaline Phosphatase 45 Units/L (34-104); Aspartate Amino Transferase 13 Units/L (13-39); BUN/Creatinine Ratio 25 (6-26); Bilirubin,Total 0.5 mg/dL (0.3-1.0); Blood Urea Nitrogen 21 mg/dL (8-23); Calcium 8.8 mg/dL (8.6-10.3); Carbon Dioxide 23 mEq/L (23-29); Chloride 108 mEq/L (98-107); Globulin 2.7 g/dL (2.4-3.5); Glucose 144 mg/dL (70-105); Magnesium 2.4 mg/dL (1.6-2.6); Osmolality,Calculated 290 (280-300); Potassium 3.8 mEq/L (3.5-5.1); Sodium 137 mEq/L (136-145); Total Protein 6.3 g/dL (6.4-8.9); eGFR For African Americans > 60 (> 60); eGFR For Non-African Americans > 60 (> 60)
[2019-01-22] MEDS: *HR* Heparin 5,000 UNIT/ML VIAL SQ SCH ×3 (05:08→20:25)
[2019-01-22] MEDS: Insulin LISPRO 300 UNITS/3 ML VIAL SQ SCH ×3 (08:11→18:04)
[2019-01-22] MEDS: Aspirin Enteric Coated 81 MG Tablet PO SCH (08:13)
[2019-01-22] MEDS: Cholecalciferol (D-3) 1,000 UNIT (25MCG) TABLET PO SCH (08:13)
[2019-01-22] MEDS: *HR* Amiodarone 200 MG TABLET PO SCH ×2 (08:13→20:25)
--- NOTE | 2019-01-22 11:22 | Cardiology Consult Note ---
Date of Encounter: 01/22/19 Time of Encounter: 11:19 Assessment and Plan (1) Ventricular tachycardia (paroxysmal) Current Visit: Yes Status: Acute Noted during sleep study. Intermittent brief episodes since admission. Morphology on ECG sugggests possibly outflow tract etiology. Recommend cardiac structure/function evaluation and ischemic evaluation. Check TTE. R/B/A to a C discussed. Patient voiced understanding, agreeable to proceed. Plan for Thursday. Started on amidoarone night/transitioned to oral Thursday. Recommend start BB therapy. Will have EP review and decide shelter medical management. Risk factor modification dicussed - weight loss, treatment of sleep apnea, etc. Discussion w patient/family: The assessment and plan as outlined above was discussed with the patient and/or family members who expressed understanding and agreement. All questions were answered. Thank you for involving us in the care of your patient. Please call with any questions. History of Present Illness Consult date: 01/22/19 Requesting physician: Mary Malin Consult reason: Arrhythmia Chief complaint: Arrhythmia History of present illness: Mr. Moore is a 78 year old male with multiple medical problems, including diabetes, hypertension, hyperlipidemia, and obstructive sleep apnea. Per report, patient was undergoing a sleep study when he was noted to have ve ntricular tachycardia. He was referred to the ER and admitted to the hospital. ECG reviewed, which demonstrates ventricular tachycardia, possibly outflow tract etiology. Patient denies palpitations, near syncopal, or syncope. Patient states he has never had a myocardial infarction, prior cardiac issues, and has never required a cardiac catheterization in the past. Patient started on amiodarone IV and switched to oral amiodarone yesterday. Cardiology consultation requested overnight. Past Med Surg Social Fam HX - Past Medical History Medical history: atrial fibrillation, hyperlipidemia, hypertension, other Additional medical history: has hearing aids Psychiatric history: no psych history - Past Surgical History Surgical History: non-contributory Additional surgical history: Abdominal surgeries - Social History Smoking Status: Former smoker Smokeless Tobacco Status: No Alcohol use: rarely Drug use: none Medications and Allergies Alfuzosin HCl [Uroxatral] 10 mg PO DAILY 01/21/19 [History] Aspirin [Lo-Dose Aspirin EC] 81 mg PO DAILY 01/21/19 [History] Atorvastatin [Lipitor] 10 mg PO QPM 01/21/19 [History] Cholecalciferol (D-3) [Vitamin D] 1,000 unit PO DAILY 01/21/19 [History] Empagliflozin [Jardiance] 10 mg PO DAILY 01/21/19 [History] Insulin DETEMIR [Levemir Flextouch] 40 units PO HS 01/21/19 [History] Insulin LISPRO [Humalog Kwikpen U-100] 10 units PO QPM 01/21/19 [History] Lisinopril-HCTZ 20-12.5 [Prinzide 20-12.5] 1 tab PO DAILY 01/21/19 [History] Metformin HCl 500 mg PO BID 01/21/19 [History] Tamsulosin HCl [Flomax] 0.4 mg PO DAILY 01/21/19 [History] Allergy/AdvReac Type Severity Reaction Status Date / Time No Known Allergies Allergy Unverified 01/21/19 21:41 All Systems Review: The remainder of the systems were reviewed and are negative - Cardiovascular Cardiovascular: as per HPI Physical Examination Vital Signs, Last 4 Hours Temp Pulse Resp BP Pulse Ox 01/22/19 07:49 52 01/22/19 07:48 98.1 F 51 16 151/87 95 General: Conversant, No Apparent Distress HEENT: Atraumatic, Normocephaly, Mucus Membranes Moist Neck: No JVD Cardiac: Reg Rate and Rhythm, Normal S1 and S2, No Murmur Lungs: Normal Breath Sounds, No Wheeze, Rales, Rhonchi Neuro: Alert and responsive, No focal deficits noted Abdomen: Soft, Other (Obese) Skin: No rashes noted on visualized skin Musculoskeletal: No Chest Wall Tenderness Extremities: No Clubbing, No Cyanosis, No Edema Results 01/22/19 03:14 01/22/19 03:14 Lab Results 01/22/19 01/22/19 03:14 03:14 WBC 8.2 Hgb 14.3 Hct 44.0 Plt Count 191 Sodium 137 Potassium 3.8 Chloride 108 H Carbon Dioxide 23 BUN 21 Creatinine 0.84 Glucose 144 H Calcium 8.8 Magnesium 2.4 Total Bilirubin 0.5 AST 13 ALT 15 Alkaline Phosphatase 45 - EKG Interpretation EKG results cardiology: personally reviewed Consult Discharge Plan - Plan Referrals: Jose Francisco Lee [Non-Partnered Physician] - 02/09/19 10:40 am Cardiac Rehab - Cardiac Rehab Cardiac Rehab: Phase I consult completed. Patient was educated on why Cardiac Rehabilitation is beneficial to his/her health. Participating in a cardiac rehabilitation can improve the following: strengthen your heart, improve ejection fraction, weight reduction, decrease cholesterol levels, lower blood pressure, lower blood sugar, improve stamina, and enhance self-image. If he/she has any questions, they were instructed to call [facility] at [phone].
[2019-01-22] MEDS ORDERED: Metoprolol XL (24 HR) Succ 25 MG TAB.ER.24H PO SCH (11:30)
[2019-01-22] MEDS ORDERED: Perflutren Lipid Microsphere 1.3 ML in 0.9 % Sodium Chloride 8.7 ML IVP ONE (11:34)
[2019-01-22] MEDS: Metoprolol XL (24 HR) Succ 25 MG TAB.ER.24H PO SCH (13:12)
--- NOTE | 2019-01-22 13:12 | Internal Med Progress Note ---
Hospitalist Progress Note - Encounter Date of Encounter: 01/22/19 Time of Encounter: 13:09 - Subjective Interval History: Patient was seen and examined at bedside today. Patient denied any chest pain, palpitation, and difficulty in breathing. Patient denied any dizziness, numbness, and weakness. Patient denied any fever and chills. - Exam Vitals: Temp Pulse Resp BP Pulse Ox 98.3 F 68 16 123/73 95 01/22/19 11:52 01/22/19 11:52 01/22/19 11:52 01/22/19 11:52 01/22/19 07:48 Exam: General: A & O 3, morbidly obese male. Apperas stated for his age HENNT: PERRLA. Head atraumatic and makes supple CVS S1 and S2 regular, no murmur RS: Clear to air entry bilaterally, no wheeze, no crackles Abdomen: Soft and nontender. Bowel sounds normal 4 Extremities: No cyanosis, clubbing, and edema Neurology: Cranial 2 through 12 normal. Motor strength 5/5 bilaterally. Sensation intact - Assessment and Plan (1) Ventricular tachycardia (paroxysmal) Current Visit: Yes Status: Acute Assessment and Plan: The patient is currently asymptomatic. Patient was admitted yesterday due to ventricular tachycardia. Patient was placed on amiodarone drip. Plan is to discontinue amiodarone drip and patient is currently on oral amiodarone. - Telemetry - LFT this morning was within normal limit - Cartilage on consult. Appreciate input. B aristeo added today - EP on consult - Plan is to do LHC on Thursday (2) Diabetes Current Visit: Yes Status: Acute Assessment and Plan: Continue basal and bolus regimen continue to monitor blood glucose. (3) Hypertension Current Visit: Yes Status: Acute Assessment and Plan: Continue lisinopril (4) Hyperlipidemia Current Visit: Yes Status: Acute Assessment and Plan: Continue atorvastatin (5) BPH (benign prostatic hyperplasia) Current Visit: Yes Status: Acute Assessment and Plan: Continue tamsulosin monitor strict I's and O's (6) NETTIE on CPAP Current Visit: Yes Status: Acute Assessment and Plan: Continue to encourage CPAP use, order has been placed with CPAP and respiratory therapy consult (7) DVT prophylaxis Current Visit: Yes Status: Acute Assessment and Plan: Heparin per protocol (8) Morbid obesity with BMI of 40.0-44.9, adult Current Visit: Yes Status: Acute Assessment and Plan: Continue to encourage lifestyle modification-diet and exercise DVT Prophylaxis: Subcutaneous heparin - Time Spent with Patient Total time spent is greater than 50% in coordination of care (as documented) at patient's floor/unit and/or counseling patient: 25 - 35 minutes Plan of Care Discussed with: patient Internal Medicine: Result - Labs CBC & Chem 7: 01/22/19 03:14 01/22/19 03:14 Labs: Short CBC 01/22/19 Range/Units 03:14 WBC 8.2 (4.3-11.1) K/mcL Hgb 14.3 (12.9-16.9) g/dL Hct 44.0 (37.5-50.1) % Plt Count 191 (140-400) K/mcL Neutrophils # 4.9 (1.6-8.9) K/mcL BMP 01/22/19 03:14 Sodium 137 Potassium 3.8 Chloride 108 H Carbon Dioxide 23 BUN 21 Creatinine 0.84 Glucose 144 H Calcium 8.8 Liver Function 01/22/19 Range/Units 03:14 Total Bilirubin 0.5 (0.3-1.0) mg/dL AST 13 (13-39) Units/L ALT 15 (7-52) Units/L Alkaline Phosphatase 45 (34-104) Units/L Albumin 3.6 (3.5-5.7) g/dL - ABG Interpretation ABG results: PT/INR, D-dimer PT 11.5 Seconds (9.4-12.1) 01/21/19 06:47 Consult Discharge Plan - Plan Referrals: Jose Francisco Lee [Non-Partnered Physician] - 02/09/19 10:40 am (2) Diabetes Qualifiers: Diabetes mellitus type: type 2 Diabetes mellitus intermediate frame tender insulin use: with chcf use Diabetes mellitus complication status: without complication Qualified Code(s): E11.9 - Type 2 diabetes mellitus without complications; Z79.4 - long-term (current) use of insulin (3) Hypertension Qualifiers: Hypertension type: essential hypertension Qualified Code(s): I10 - Essential (primary) hypertension (4) Hyperlipidemia Qualifiers: Hyperlipidemia type: unspecified Qualified Code(s): E78.5 - Hyperlipidemia, unspecified (5) BPH (benign prostatic hyperplasia) Qualifiers: Lower urinary tract symptom detail: unspecified Qualified Code(s): N40.1 - Benign prostatic hyperplasia with lower urinary tract symptoms
[2019-01-22] MEDS: Insulin DETEMIR 100 UNIT/ML X5UNITS SQ SCH (20:25)
[2019-01-23 01:51] LABS: Basophils % 0.5 %; Eosinophils # 0.1 K/mcL (0.0-0.6); Eosinophils % 1.8 %; Hematocrit 41.2 % (37.5-50.1); Hemoglobin 13.5 g/dL (12.9-16.9); Immature Granulocytes % 0.1 % (0-4); Lymphocytes # 2.1 K/mcL (0.6-4.6); Lymphocytes % 27.8 %; Mean Corpuscular HGB Conc 32.8 g/dL (31.6-35.5); Mean Corpuscular Hemoglobin 29.7 pg (28.0-33.3); Mean Corpuscular Volume 90.5 fL (83.0-100.0); Mean Platelet Volume 11.1 fL (9.4-12.4); Monocytes # 0.9 K/mcL (0.0-1.3); Monocytes % 11.2 %; Neutrophils # 4.5 K/mcL (1.6-8.9); Platelet Count 191 K/mcL (140-400); Red Blood Count 4.55 M/mcL (4.19-5.50); Red Cell Distribution Width 13.5 % (11.5-14.5); Segmented Neutrophils % 58.6 %; White Blood Count 7.7 K/mcL (4.3-11.1)
[2019-01-23 02:13] LABS: BUN/Creatinine Ratio 24 (6-26); Blood Urea Nitrogen 19 mg/dL (8-23); Calcium 8.8 mg/dL (8.6-10.3); Carbon Dioxide 23 mEq/L (23-29); Chloride 109 mEq/L (98-107); Glucose 104 mg/dL (70-105); Osmolality,Calculated 291 (280-300); Potassium 3.7 mEq/L (3.5-5.1); Sodium 139 mEq/L (136-145); eGFR For African Americans > 60 (> 60); eGFR For Non-African Americans > 60 (> 60)
[2019-01-23] MEDS: *HR* Heparin 5,000 UNIT/ML VIAL SQ SCH ×3 (05:15→20:41)
[2019-01-23] MEDS: Insulin LISPRO 300 UNITS/3 ML VIAL SQ SCH ×3 (08:52→17:10)
--- NOTE | 2019-01-23 09:00 | Cardiology Progress Note ---
Date of Encounter: 01/23/19 Time of Encounter: 08:58 Assessment and Plan (1) Ventricular tachycardia (paroxysmal) Current Visit: Yes Status: Acute VT reportedly noted during sleep study. Intermittent brief episodes since admission. Morphology on ECG sugggests possibly outflow tract etiology. TTE reviewed, which demonstrates normal LV systolic function. R/B/A to a LHC discussed. Patient voiced understanding, agreeable to proceed. Plan for Thursday. Started on amidoarone night/transitioned to oral Thursday. Recommend start BB therapy - low dose, resting HR 50s-60s. Will have EP review and decide long term acute care registered nurse medical management pending [facility]. Risk factor modification discussed - weight loss, treatment of sleep apnea, etc. Discussion w patient/family: The assessment and plan as outlined above was discussed with the patient and/or family members who expressed understanding and agreement. All questions were an swered. Thank you for involving us in the care of your patient. Please call with any questions. Subjective Principal diagnosis: Arrhythmia Interval history: Patient seen and examined. Overall, reports he is feeling well. Denies chest pain or discomfort. No significant events reported by nursing staff from overnight. Results of TTE reviewed with patient. Objective Vital Signs, Last 4 Hours Temp Pulse Resp BP Pulse Ox 01/23/19 07:34 97.5 F L 57 17 117/66 99 01/23/19 05:40 17 98 General: Conversant, No Apparent Distress HEENT: Atraumatic, Normocephaly, Mucus Membranes Moist Neck: No JVD, Normal carotid pulses Cardiac: Reg Rate and Rhythm, Normal S1 and S2, No Murmur Lungs: Normal Breath Sounds, No Wheeze, Rales, Rhonchi Neuro: Alert and responsive, No focal deficits noted Abdomen: Soft, Non-Tender, Other (Obese) Skin: No rashes noted on visualized skin Musculoskeletal: No Chest Wall Tenderness Extremities: No Clubbing, No Cyanosis Results 01/23/19 01:23 01/23/19 01:23 Lab Results 01/23/19 01/23/19 01:23 01:23 WBC 7.7 Hgb 13.5 Hct 41.2 Plt Count 191 Sodium 139 Potassium 3.7 Chloride 109 H Carbon Dioxide 23 BUN 19 Creatinine 0.79 Glucose 104 Calcium 8.8 - Imaging and Cardiology Echo: report reviewed - EKG Interpretation EKG results cardiology: personally reviewed Consult Discharge Plan - Plan Referrals: Jose Francisco Lee [Non-Partnered Physician] - 02/09/19 10:40 am Cardiac Rehab - Cardiac Rehab Cardiac Rehab: Phase I consult completed. Patient was educated on why Cardiac Rehabilitation is beneficial to his/her health. Participating in a cardiac rehabilitation can improve the following: strengthen your heart, improve ejection fraction, weight reduction, decrease cholesterol levels, lower blood pressure, lower blood sugar, improve stamina, and enhance self-image. If he/she has any questions, they were instructed to call [facility] at [phone].
[2019-01-23] MEDS: Metoprolol XL (24 HR) Succ 25 MG TAB.ER.24H PO SCH (09:03)
[2019-01-23] MEDS: Cholecalciferol (D-3) 1,000 UNIT (25MCG) TABLET PO SCH (09:03)
[2019-01-23] MEDS: *HR* Amiodarone 200 MG TABLET PO SCH ×2 (09:03→20:42)
[2019-01-23] MEDS: Aspirin Enteric Coated 81 MG Tablet PO SCH (09:03)
--- NOTE | 2019-01-23 11:29 | Internal Med Progress Note ---
Hospitalist Progress Note - Encounter Date of Encounter: 01/23/19 Time of Encounter: 11:27 - Subjective Interval History: Patient was seen and examined. Patient denies any chest pain, palpitation, and difficult in breathing. Patient denies any fever and chills. Patient reports that he is feeling well. - Exam Vitals: Temp Pulse Resp BP Pulse Ox 98.5 F 56 18 127/60 99 01/23/19 11:16 01/23/19 11:18 01/23/19 11:16 01/23/19 11:16 01/23/19 07:34 Exam: General: A & O 3, morbidly obese male. Apperas stated for his age HENNT: PERRLA. Head atraumatic and makes supple CVS S1 and S2 regular, no murmur RS: Clear to air entry bilaterally, no wheeze, no crackles Abdomen: Soft and nontender. Bowel sounds normal 4 Extremities: No cyanosis, clubbing, and edema Neurology: Cranial 2 through 12 normal. Motor strength 5/5 bilaterally. Sensation intact - Assessment and Plan (1) Ventricular tachycardia (paroxysmal) Current Visit: Yes Status: Acute Assessment and Plan: The patient is currently asymptomatic. Patient was admitted yesterday due to ventricular tachycardia. Patient was placed on amiodarone drip. Plan is to discontinue amiodarone drip and patient is currently on oral amiodarone. - Telemetry - Continue amiodarone and low-dose metoprolol. - EP on consult - Plan is to do [facility] on Thursday, pending EP consult - Echocardiogram done yesterday was negative for any acute abnormality. - We will continue to monitor. (2) Diabetes Current Visit: Yes Status: Acute Assessment and Plan: Continue basal and bolus regimen continue to monitor blood glucose. (3) Hypertension Current Visit: Yes Status: Acute Assessment and Plan: Continue lisinopril (4) Hyperlipidemia Current Visit: Yes Status: Acute Assessment and Plan: Continue atorvastatin (5) BPH (benign prostatic hyperplasia) Current Visit: Yes Status: Acute Assessment and Plan: Continue tamsulosin monitor strict I's and O's (6) NETTIE on CPAP Current Visit: Yes Status: Acute Assessment and Plan: Continue to encourage CPAP use, order has been placed with CPAP and respiratory therapy consult (7) Morbid obesity with BMI of 40.0-44.9, adult Current Visit: Yes Status: Acute Assessment and Plan: Continue to encourage lifestyle modification-diet and exercise (8) DVT prophylaxis Current Visit: Yes Status: Acute Assessment and Plan: Heparin per protocol - Time Spent with Patient Total time spent is greater than 50% in coordination of care (as documented) at patient's floor/unit and/or counseling patient: 25 - 35 minutes Plan of Care Discussed with: patient Internal Medicine: Result - Labs CBC & Chem 7: 01/23/19 01:23 01/23/19 01:23 Labs: Short CBC 01/23/19 Range/Units 01:23 WBC 7.7 (4.3-11.1) K/mcL Hgb 13.5 (12.9-16.9) g/dL Hct 41.2 (37.5-50.1) % Plt Count 191 (140-400) K/mcL Neutrophils # 4.5 (1.6-8.9) K/mcL BMP 01/23/19 01:23 Sodium 139 Potassium 3.7 Chloride 109 H Carbon Dioxide 23 BUN 19 Creatinine 0.79 Glucose 104 Calcium 8.8 - ABG Interpretation ABG results: PT/INR, D-dimer PT 11.5 Seconds (9.4-12.1) 01/21/19 06:47 - Impressions Impressions Echocardiogram 01/22/19 13:12 Impressions: LVEF 60%. Normal LV chamber size and function. Mild concentric left ventricular hypertrophy. Mild left ventricular diastolic dysfunction. Grossly normal right ventricular structure and function. No obvious significant valvular dysfunction. No evidence of pulmonary hypertension identified. RVSP not well obtained. Left Ventricular Wall Motion: Rest Echo Findings All wall segments showed normal motion. Findings: Study Quality * Technically sub-optimal due to body habitus. ECG Findings * Sinus bradycardia. Left Ventricle * LVEF 60%. * Normal LV chamber size and function. * Mild concentric left ventricular hypertrophy. * Mild left ventricular diastolic dysfunction. Right Ventricle * Grossly normal right ventricular structure and function. Left Atrium * Mildly dilated left atrium. Right Atrium * Normal right atrial size. Interatrial Septum * Interatrial septum not well evaluated. Aortic Valve * Aortic valve not well visualized. * No aortic regurgitation. * No aortic stenosis. Mitral Valve * Normal mitral valve structure and function. * No mitral stenosis. * No mitral regurgitation. Tricuspid Valve * Normal tricuspid valve structure and function. * Trace tricuspid regurgitation. * No evidence of pulmonary hypertension. Pulmonic Valve * Pulmonic valve not well visualized. Aorta * Normally sized aortic root. Pericardium * The pericardium appears normal. IVC * The IVC is not well evaluated. Pulmonary Artery * Pulmonary artery not well visualized. Consult Discharge Plan - Plan Referrals: Jose Francisco Lee [Non-Partnered Physician] - 02/09/19 10:40 am ___ (2) Diabetes Qualifiers: Diabetes mellitus type: type 2 Diabetes mellitus fpc insulin use: with intermission coordinator use Diabetes mellitus complication status: without complication Qualified Code(s): E11.9 - Type 2 diabetes mellitus without complications; Z79.4 - USP (current) use of insulin (3) Hypertension Qualifiers: Hypertension type: essential hypertension Qualified Code(s): I10 - Essential (primary) hypertension (4) Hyperlipidemia Qualifiers: Hyperlipidemia type: unspecified Qualified Code(s): E78.5 - Hyperlipidemia, unspecified (5) BPH (benign prostatic hyperplasia) Qualifiers: Lower urinary tract symptom detail: unspecified Qualified Code(s): N40.1 - Benign prostatic hyperplasia with lower urinary tract symptoms
[2019-01-23] MEDS: Insulin DETEMIR 100 UNIT/ML X5UNITS SQ SCH (20:41)
[2019-01-24 05:05] LABS: BUN/Creatinine Ratio 23 (6-26); Blood Urea Nitrogen 18 mg/dL (8-23); Calcium 8.7 mg/dL (8.6-10.3); Carbon Dioxide 22 mEq/L (23-29); Chloride 109 mEq/L (98-107); Glucose 142 mg/dL (70-105); Magnesium 2.3 mg/dL (1.6-2.6); Osmolality,Calculated 292 (280-300); Potassium 3.7 mEq/L (3.5-5.1); Sodium 139 mEq/L (136-145); eGFR For African Americans > 60 (> 60); eGFR For Non-African Americans > 60 (> 60)
[2019-01-24] MEDS: *HR* Heparin 5,000 UNIT/ML VIAL SQ SCH ×3 (05:36→20:24)
[2019-01-24] MEDS: Cholecalciferol (D-3) 1,000 UNIT (25MCG) TABLET PO SCH (08:20)
[2019-01-24] MEDS: Aspirin Enteric Coated 81 MG Tablet PO SCH (08:20)
[2019-01-24] MEDS: *HR* Amiodarone 200 MG TABLET PO SCH (08:20)
[2019-01-24] MEDS: Insulin LISPRO 300 UNITS/3 ML VIAL SQ SCH ×3 (08:20→16:41)
[2019-01-24] MEDS: Metoprolol XL (24 HR) Succ 25 MG TAB.ER.24H PO SCH (08:20)
--- NOTE | 2019-01-24 12:25 | Event Note ---
Date of Encounter: 01/24/19 Time of Encounter: 12:23 - Cardiology Event Note [facility] planed for this afternoon for ischemic evaluation in setting of NSVT as discussed. Telemetry reviewed. One rick seen. No other runs of NSVT seen. On amiodarone and metoprolol. Further termite control representative medication recs pending [facility]. Vital Signs Temp Pulse Resp BP 01/24/19 11:23 97.9 F 60 16 122/61 01/24/19 08:00 56 01/24/19 07:31 98.1 F 45 16 101/64 01/24/19 03:47 97.9 F 70 20 132/77 01/23/19 23:43 97.7 F 54 18 138/72 01/23/19 19:47 97.7 F 62 17 123/59 01/23/19 16:07 97.6 F 57 18 126/58 Intake and Output 01/23/19 01/24/19 01/24/19 23:59 07:59 15:59 Intake Total 240 / 1080 Balance 240 / 1080 Intake: Oral 240 / 1080 Other: Meal Dinner Percent of Meal Consumed 100% Blood Glucose* 315 112 113 BMP 01/24/19 Range/Units 04:24 Sodium 139 (136-145) mEq/L Potassium 3.7 (3.5-5.1) mEq/L Chloride 109 H (98-107) mEq/L Carbon Dioxide 22 L (23-29) mEq/L BUN 18 (8-23) mg/dL Creatinine 0.80 (0.70-1.30) mg/dL Glucose 142 H (70-105) mg/dL Calcium 8.7 (8.6-10.3) mg/dL HAS-BLED Score - Score Elderly: Age>65 years Medication usage predisposing to bleeding: Antiplatelet agents, NSAIDs, Anticoagulants Score: 2
--- NOTE | 2019-01-24 12:51 | Internal Med Progress Note ---
Hospitalist Progress Note - Encounter Date of Encounter: 01/24/19 Time of Encounter: 12:48 - Subjective Interval History: Patient was seen and examined at bedside. Denies chest pain, palpation, and difficulty breathing. Awaiting [facility] which is this afternoon. - Exam Vitals: Temp Pulse Resp BP Pulse Ox 97.9 F 60 16 122/61 99 01/24/19 11:23 01/24/19 11:23 01/24/19 11:23 01/24/19 11:01/23/19 07:34 Exam: General: A & O 3, morbidly obese male. Pérez stated for his age HENNT: PERRLA. Head atraumatic and makes supple CVS S1 and S2 regular, no murmur RS: Clear to air entry bilaterally, no wheeze, no crackles Abdomen: Soft and nontender. Bowel sounds normal 4 Extremities: No cyanosis, clubbing, and edema Neurology: Cranial 2 through 12 normal. Motor strength 5/5 bilaterally. Sensation intact - Assessment and Plan (1) Ventricular tachycardia (paroxysmal) Current Visit: Yes Status: Acute Assessment and Plan: The patient is currently asymptomatic. - Telemetry - Continue amiodarone and low-dose metoprolol. - EP on consult - Plan is to do [facility] today for NSVT - Cardilogy will make recommendations about long-term management [facility] (2) Diabetes Current Visit: Yes Status: Acute Assessment and Plan: Continue basal and bolus regimen continue to monitor blood glucose. (3) Hypertension Current Visit: Yes Status: Acute Assessment and Plan: Continue lisinopril (4) Hyperlipidemia Current Visit: Yes Status: Acute Assessment and Plan: Continue atorvastatin (5) BPH (benign prostatic hyperplasia) Current Visit: Yes Status: Acute Assessment and Plan: Continue tamsulosin monitor strict I's and O's (6) NETTIE on CPAP Current Visit: Yes Status: Acute Assessment and Plan: Continue to encourage CPAP use, order has been placed with CPAP and respiratory therapy consult (7) Morbid obesity with BMI of 40.0-44.9, adult Current Visit: Yes Status: Acute Assessment and Plan: Continue to encourage lifestyle modification-diet and exercise (8) DVT prophylaxis Current Visit: Yes Status: Acute Assessment and Plan: Heparin SC - Time Spent with Patient Total time spent is greater than 50% in coordination of care (as documented) at patient's floor/unit and/or counseling patient: 25 - 35 minutes Plan of Care Discussed with: patient Internal Medicine: Result - Labs CBC & Chem 7: 01/23/19 01:23 01/24/19 04:24 Labs: BMP 01/24/19 04:24 Sodium 139 Potassium 3.7 Chloride 109 H Carbon Dioxide 22 L BUN 18 Creatinine 0.80 Glucose 142 H Calcium 8.7 - ABG Interpretation ABG results: PT/INR, D-dimer PT 11.5 Seconds (9.4-12.1) 01/21/19 06:47 Consult Discharge Plan - Plan Referrals: Jose Francisco Lee [Non-Partnered Physician] - 02/09/19 10:40 am (2) Diabetes Qualifiers: Diabetes mellitus type: type 2 Diabetes mellitus senior care insulin use: with senior care use Diabetes mellitus complication status: without complication Qualified Code(s): E11.9 - Type 2 diabetes mellitus without complications; Z79.4 - halfway (current) use of insulin (3) Hypertension Qualifiers: Hypertension type: essential hypertension Qualified Code(s): I10 - Essential (primary) hypertension (4) Hyperlipidemia Qualifiers: Hyperlipidemia type: unspecified Qualified Code(s): E78.5 - Hyperlipidemia, unspecified (5) BPH (benign prostatic hyperplasia) Qualifiers: Lower urinary tract symptom detail: unspecified Qualified Code(s): N40.1 - Benign prostatic hyperplasia with lower urinary tract symptoms
[2019-01-24] MEDS ORDERED: 0.9 % Sodium Chloride 1,000 ML ONE (13:06)
[2019-01-24] MEDS ORDERED: Iopamidol 125 ML INFUS..BTL ONE (13:07)
[2019-01-24] MEDS ORDERED: Nitroglycerin 1,000 MCG/10 ML VIAL IV ONE (13:07)
[2019-01-24] MEDS ORDERED: *HR* Heparin 10,000 UNIT/10 ML VIAL ONE (13:07)
[2019-01-24] MEDS ORDERED: Heparin 1,000 UNITS/500 mL 500 ML ONE (13:07)
[2019-01-24] MEDS ORDERED: *HR* Midazolam HCl 2 MG/2 ML VIAL ONE (13:12)
[2019-01-24] MEDS ORDERED: *HR* FentaNYL (PF) 100 MCG/2 ML VIAL ONE (13:12)
--- NOTE | 2019-01-24 13:25 | Pre-Sedation Evaluation ---
Pre-sedation evaluation - Pre-sedation checklist Date of procedure: 01/24/19 Procedure: C Recent Vitals: Last Vital Signs Temp 97.9 F 01/24/19 11:23 Pulse 60 01/24/19 11:23 Resp 16 01/24/19 11:23 BP 122/61 01/24/19 11:23 Pulse Ox 99 01/23/19 07:34 ASA Classification *see protocol: CLASS II-Mild systemic disease Cardiac Registry (Cardio Only) - Functional Capacity Functional Capacity: Unknown - Clincal Frailty Scale Clinical Frailty Scale: Managing Well
--- NOTE | 2019-01-24 14:17 | Invasive Diagnostic Lab Proc ---
Name: Fransisco Moore Date of Study: 01/24/2019 Date: 1940 Ht: 72.0in Medical Record#: [id number] Age: 78 Wt: 315.26lb Gender: Male BSA: 2.59 Order #: [id number] BMI: 42.7 Physicians Procedure Physician: Dewayne Diaz MD Referring MD: Referring MD: Staff Name Position Time In Debora Low RT (R) Monitor 01:20 PM Tonya Matta RT (R) Monitor 01:20 PM Judith Tubbs RT (R) Scrub 01:20 PM Richardson Grullon RN Guideman 01:20 PM Procedures Performed Procedure L HRT ARTERY/VENTRICLE ANGIO Pre-Procedure Checklist Informed consent is complete signed and on chart. H&P is on chart. ID band is on and ID verified with patient. Patient NPO for procedure The procedure was described for the patient and questions were answered. Blood Pressure: 118/63 ECG is on chart. Rhythm: NSR Plan of Care Patient will tolerate the procedure without complications. Adequate level of comfort will be maintained. Hemodynamics will remain stable Patient will recover from procedure without complications. Respiratory function will be maintained. Cardiac rhythm will remain stable. Patient temperature will be maintained. Patient and/or family have verbalized understanding of the procedure. Patient Education Chief Complaint/Reason for Test: Cardiac Cath Developmental Category: Geriatric (65+ years) Developmentally Appropriate for Age: Yes Learning Barriers: None Education Needs: Procedure Education Method: Verbal Information Taught: Cardiac Cath Educational Evaluation: Able to repeat information Intravenous Access Time IV Size Location DC'd Fluid/Drip Rate Units RN 01:11 PM 18g 1 1/4" Patent On Arrival Lt Arm Richardson Grullon RN 01:11 PM 20g 1 1/4" Patent On Arrival Rt Antecubital 0.9NaCl 25 ml/hr Richardson Grullon RN Allergies No Known Allergies Vital Signs Time BP (mmHg) HR (bpm) O2 Sat. RR (bpm) LOC 01:12 PM 132 / 77 70 95 % 01:23 PM / % 5 = Fully awake and oriented or at pre-proc level 01:23 PM / % 4 = Oriented but drowsy 01:41 PM / % 4 = Oriented but drowsy 01:29 PM 144 / 65 58 96 % 17 01:34 PM 120 / 67 58 95 % 18 01:39 PM 115 / 58 54 96 % 16 01:44 PM 116 / 67 52 96 % 14 01:49 PM 117 / 61 58 95 % 16 01:54 PM 118 / 63 60 96 % 19 01:59 PM 125 / 70 59 95 % 17 02:04 PM 120 / 64 60 95 % 17 Procedural Medications Time Medication Dose Units Method Given By 01:23 PM Oxygen 2 L/min nasal cannula Richardson Grullon RN 01:29 PM Versed 1 mg Intravenous Richardson Grullon RN 01:29 PM Fentanyl 50 mcg Intravenous Richardson Grullon RN 01:43 PM Lidocaine 2% 20 ml Subcutaneous Dewayne Diaz MD ASA Classification: CLASS II- Mild systemic disease (i.e. well-controlled diabetes, hypertension, asthma, cigarette smoking) Joe Score Preprocedure Postprocedure Activity 2- Moves 4 extremities sustained head lift Activity 2- Moves 4 extremities sustained head lift Circulation 2- SBP +/= 20 points of pre-anesthetic level Circulation 2- SBP +/= 20 points of pre-anesthetic level Consciousness 2- Awake and alert oriented x 3 Consciousness 2- Awake and alert oriented x 3 O2 Saturation 2- Able to maintain O2 satruation of 92% on room air O2 Saturation 2- Able to maintain O2 satruation of 92% on room air Respiratory 2- Able to deep breathe and cough well Respiratory 2- Able to deep breathe and cough well Total Score 10 Total Score 10 Contrast Agent: Isovue Diagnostic Contrast: 53 ml Total Contrast: 53 ml Fluoro Dose: 56 mGy Procedure Log Time Note Enter By 01:09 PM CathStat 01:20 PM Pt arrived to clinical laboratory technician 2 at 13:19 twilson :20 PM Physician arrived 13:20 twilson :20 PM Meet and greet completed twilson :20 PM Sign in performed according to hospital policy. Informed consent was obtained. twilson :20 PM ASA Class CLASS II- Mild systemic disease (i.e. well-controlled diabetes, hypertension, asthma, cigarette smoking) twilson :20 PM Patient charges- Angio tray pack, Navilyst 3mm J, Pulse Oximetry and ACIST tubing and transducer twilson 01:20 PM Debora Low RT (R) Position: Monitor Time in: 13:20 twilson :20 PM Tonya Matta RT (R) Position: Monitor Time in: 13:20 twilson 01: PM Judith Tubbs RT (R) Position: Scrub Time in: : twilson : PM Richardson Grullon RN Position: Guideman Time in: : twilson : PM Procedure start : twilson : PM Time: Oxygen on at 2 L/min per nasal cannula by Richardson Grullon RN twilson : PM Time: : Patient comfortable and pain free: Yes twilson PM Time: LOC: 5 = Fully awake and oriented or at pre-proc level twilson : PM Case Delayed no twilson : PM Hair removed from procedure site in procedure lab using clippers. Bilateral groin prepped with Chloraprep by Tonya Matta (R), then patient was draped. Skin intact. twilson : PM Bilateral hearing aids in place. twilson : PM Vitals capture started with the following parameters, Patient=Adult, Interval=5 min, Initial Jcrxfwii=288 mmHg, Deflation Rate=3 mmHg, Cuff placed on Right Arm : PM Reference ECG taken : PM Recorded ECG: HR=58 Condition=Condition 1 01: PM Vitals capture stopped. : PM Vitals capture started with the following parameters, Patient=Adult, Interval=5 min, Initial Ylorsboh=284 mmHg, Deflation Rate=3 mmHg, Cuff placed on Right Arm 01: PM Time: 13: Versed 1 mg Intravenous Given by Richardson Grullon RN twilson : PM Time: 13: Fentanyl 50 mcg Intravenous Given by Richardson Grullon RN twilson : PM HR=58 bpm, KTAB=610/65 mmhg, SpO2=96.0 %, Resp=17 B/min 01:33 PM Pressure channel 1 zeroed. 01:34 PM HR=58 bpm, MCVH=721/67 mmhg, SpO2=95.0 %, Resp=18 B/min 01:39 PM HR=54 bpm, SVLC=248/58 mmhg, SpO2=96.0 %, Resp=16 B/min 01: PM Time: 13: Patient comfortable and pain free: Yes twilson PM Time: LOC: 4 = Oriented but drowsy twilson 01:42 PM Time out was performed according to hospital policy. Conscious sedation and anesthesia was achieved (see medication log with in this report above) twilson 01:43 PM Time: 13:43 20 ml Lidocaine 2% to right groin Subcutaneous Given by Dewayne Diaz MD twilson 01:44 PM HR=52 bpm, OGPM=695/67 mmhg, SpO2=96.0 %, Resp=14 B/min 01:45 PM Micro-Introducer Kit utilized for sheath placement twilson 01:45 PM Access obtained by percutaneous puncture. 6Fr 10cm Terumo [place] sheath placed in right Femoral artery. [id number] twilson 01:46 PM 5Fr FR 4 catheter inserted over the wire DNC twilson 01:46 PM Wire removed twilson 01:46 PM Recorded Pressure: Ao, HR=55, Condition=Condition 1 (Aorta) Ao 121/71/92 01:47 PM RCA angiography performed in multiple views. twilson 01:47 PM Wire reinserted. twilson 01:48 PM Catheter removed twilson 01:48 PM 5Fr FL 4 catheter inserted over the wire DN twilson 01:49 PM Wire removed twilson 01:49 PM LCA angiography performed in multiple views. twilson 01:49 PM Recorded Pressure: Ao, HR=57, Condition=Condition 1 (Aorta) Ao 111/73/92 01:49 PM HR=58 bpm, TPRD=161/61 mmhg, SpO2=95.0 %, Resp=16 B/min 01:50 PM Wire reinserted. twilson 01:50 PM Catheter removed twilson 01:50 PM 5Fr Pigtail catheter inserted over the wire DN twilson 01:50 PM Catheter crossed the aortic valve and was selectively placed in the left ventricle. Pressures recorded on pullback for left heart catheterization. twilson 01:50 PM Wire removed twilson 01:52 PM Recorded Pressure: LV, HR=66, Condition=Condition 1 (Left Ventricle) LV 111/1/12 01:52 PM Recorded Pressure: LV, Ao, HR=61, Condition=Condition 1 (Left Ventricle) LV 124/3/16, (Aorta) Ao 136/29/83 01:52 PM Pressures only. No injection. Wire reinserted. Wire and catheter removed, intact. twilson 01:54 PM Bolus angiogram of right Femoral complete: 2 ml/sec for a total of 4 mls twilson :54 PM Bolus angiogram of right Femoral complete: 2 ml/sec for a total of 4. mls twilson :54 PM HR=60 bpm, BBLO=556/63 mmhg, SpO2=96.0 %, Resp=19 B/min 01:56 PM Time: 13:41 Patient comfortable and pain free: Yes twilson :56 PM Time: 13:41LOC: 4 = Oriented but drowsy twilson :56 PM Coronary Dominance: Left twilson :57 PM Lesion found in Proximal RCA. Pre Stenosis: 60 Pre ANGEL LUIS Flow: twilson :57 PM Procedure completed at 13:57 01/24/2019 twilson :57 PM Did you address ANGEL LUIS flow and Dominance? YesCoronary Dominance: Left twilson :57 PM Isovue 370 - 125ml,1 Bottle(s) used. twilson :57 PM Arterial sheath pulled, Mynx closure device used and was Successful [id number] S/N. twilson :57 PM Estimated Blood Loss: minimal twilson :57 PM Post ECG NSR twilson 01:59 PM HR=59 bpm, YMGH=525/70 mmhg, SpO2=95.0 %, Resp=17 B/min 02:00 PM Sign out completed: Radiation Dose 386.03 mGy, 56.5 Gy/cm2 Fluoro Time: 2.2 Isovue 370 - 200ml contrast 53 ml given by Dewayne Diaz MD. Complications: None. The patient was discharged out of the slab tripper in stable condition. Sedation minutes 31. Cardiac Rehab Consult needed: No. Confirmed administered medications: Yes twilson 02:00 PM Post Blood Pressure 125/70 twilson 02: PM 14:01 Post Pulses Bilateral DP & PT 1+ twilson 02:01 PM 14:01 Post Pulses Bilateral radial 1+ twilson 02:01 PM Information taught Cardiac Cath and Mynx twilson 02: PM Education needs Procedure, Plan of Care, and Responsibilities of Patient in Care twilson 02: PM Learning barriers :None twilson 02:01 PM Education Methods Verbal twilson 02:01 PM Education evaluation Able to repeat information twilson 02:01 PM Site status No bleeding/ No Hematoma - Rt Groin as reported by Judith Tubbs RT (R) at 14:01 twilson 02:01 PM Opsite applied twilson 02:01 PM Delay to floor No twilson 02:01 PM No family present. twilson 02:04 PM HR=60 bpm, IGLF=805/64 mmhg, SpO2=95.0 %, Resp=17 B/min 02:11 PM Report given to Diane GRAHAM Pt taken to 2N Room #11. 14:11 twilson 02:11 PM Patient out of room: 14:11 twilson Complications Complication None Hemodynamics Pressures Site Systolic/A Wave Diastolic/V Wave Mean AO 121 71 92 AO 111 73 92 LV 111 1 12 LV 124 3 16 AO 136 29 83 Post Procedure Information Blood Pressure: 125/70 mmHg Rhythm: NSR Post procedural instructions were given Closure Device Time Device Success/Fail 01/24/2019 2:01:00 PM MynxGrip Successful Site Checks Time Location Status Staff Sheath In? Note 02:01 PM Rt Groin No bleeding/ No Hematoma Judith Tubbs RT (R) Pulses Time Site Pre-Procedure Post-Procedure Note 01/24/2019 1:11:00 PM Bilateral DP & PT 1+ 01/24/2019 1:12:00 PM Bilateral radial 1+ 2:01:00 PM Bilateral DP & PT 1+ 2:01:00 PM Bilateral radial 1+ Updated by Debora Low, RT (R) on 01/24/2019 2:11:56 PM electronically signed on 01/24/2019 2:12:26 PM with status of Final
--- NOTE | 2019-01-24 14:21 | Electrophysiology Consult Note ---
<Randy Murray R - Last Filed: 01/24/19 15:06> Date of Encounter: 01/24/19 Time of Encounter: 14:00 Assessment and Plan (1) Ventricular tachycardia (paroxysmal) Status: Acute Per EP: Previous recirds reviewed: "VT reportedly noted during sleep study. Intermittent brief episodes since admission. Morphology on ECG sugggests possibly outflow tract etiology". Started on amiodarone drip per primary service on admission and has been on by mouth amiodarone. He underwent left heart catheterization today, per Dr. Diaz, moderate RCA lesion to nondominant RCA that did not require intervention. TSH, magnesium, potassium stable. Troponin negative. Echo with preserved EF 60%, no obvious significant valvular dysfunction, mild diastolic dysfunction, no pulmonary hypertension, NSWMA. Discussed with Dr. 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 Will discontinue by mouth amiodarone. We will titrate beta aristeo with goal of Lopressor 50 mg by mouth twice a day if heart rate and blood pressure will allow. Decreasing ARIELA inhibitor dosage and will monitor. (2) CAD (coronary artery disease) Status: Acute Per EP: Discussed and reviewed with Dr. Diaz and Dr. Garcia, recs for nonexercise nuclear 2 day stress test to assess for any potential ischemic burden from RCA lesion that would warrant further intervention. On asa,statin, BB, ACEI. Qualifiers: Coronary Disease-Associated Artery/Lesion type: [place] artery [place] vs. transplanted heart: [place] heart Associated angina: without angina Qualified Code(s): I25.10 - Atherosclerotic heart disease of [place] coronary artery without angina pectoris Discussion w patient/family: The assessment and plan as outlined above was discussed with the patient and/or family members who expressed understanding and agreement. All questions were answered. Thank you for involving us in the care of your patient. Please call with any questions. History of Present Illness Consult date: 01/24/19 Requesting physician: Johnny Costa Consult reason: VT Chief complaint: Abnormal Heart rate during sleep study History of present illness: Mr. Moore is a 78 year old male with a relevant past medical history of atrial fibrillation, HLD, HTN, past nicotine abuse. EP consult for VT. Patient apparently undergoing sleep study for CPAP titration and noted to have ventricular tachycardia and referred to ER for further evaluation. Patient asymptomatic and denied any chest pain, shortness of breath, palpitations, dizziness. Seen today status post catheterization. Seen with family. Currently denies any chest pain, short of breath, palpitations. Past Med Surg Social Fam HX - Past Medical History Attestation: Yes The following information was validated with the patient. Source: patient, old records reviewed Medical history: atrial fibrillation, hyperlipidemia, hypertension, other Additional medical history: has hearing aids Psychiatric history: no psych history - Past Surgical History Surgical History: non-contributory Additional surgical history: Abdominal surgeries - Social History Smoking Status: Former smoker Smokeless Tobacco Status: No Alcohol use: rarely Drug use: none Medications and Allergies Alfuzosin HCl [Uroxatral] 10 mg PO DAILY 01/21/19 [History] Aspirin [Lo-Dose Aspirin EC] 81 mg PO DAILY 01/21/19 [History] Atorvastatin [Lipitor] 10 mg PO QPM 01/21/19 [History] Cholecalciferol (D-3) [Vitamin D] 1,000 unit PO DAILY 01/21/19 [History] Empagliflozin [Jardiance] 10 mg PO DAILY 01/21/19 [History] Insulin DETEMIR [Levemir Flextouch] 40 units PO HS 01/21/19 [History] Insulin LISPRO [Humalog Kwikpen U-100] 10 units PO QPM 01/21/19 [History] Metformin HCl 500 mg PO BID 01/21/19 [History] Tamsulosin HCl [Flomax] 0.4 mg PO DAILY 01/21/19 [History] Lisinopril [Zestril] 5 mg PO DAILY 30 Days #30 tablet 01/26/19 [Rx] Metoprolol [Lopressor] 25 mg PO BID 30 Days #60 tablet 01/26/19 [Rx] Allergy/AdvReac Type Severity Reaction Status Date / Time No Known Allergies Allergy Unverified 01/21/19 21:41 All Systems Review: The remainder of the systems were reviewed and are negative - Cardiovascular Cardiovascular: as per HPI Physical Examination Vital Signs, Last 4 Hours Temp Pulse Resp BP 01/24/19 11:23 97.9 F 60 16 122/61 General: Conversant, No Apparent Distress HEENT: Atraumatic, Normocephaly, Mucus Membranes Moist Neck: No JVD, Normal carotid pulses Cardiac: Reg Rate and Rhythm, Normal S1 and S2, No Murmur Lungs: Normal Breath Sounds, No Wheeze, Rales, Rhonchi Neuro: Alert and responsive, No focal deficits noted Abdomen: Soft, Non-Tender, Other (obese) Skin: No rashes noted on visualized skin Musculoskeletal: No Chest Wall Tenderness Extremities: No Clubbing, No Cyanosis, No Edema, Normal Pulses Results 01/23/19 01:23 01/24/19 04:24 Lab Results Laboratory Tests 01/21/19 01/21/19 01/22/19 06:47 06:47 03:14 Hgb Hct INR 1.0 Creatinine Est GFR (Non-Af Amer) Magnesium AST 13 ALT 15 Troponin I < 0.03 TSH 2.586 01/23/19 01/24/19 01:23 04:24 Hgb 13.5 Hct 41.2 INR Creatinine 0.80 Est GFR (Non-Af Amer) > 60 Magnesium 2.3 AST ALT Troponin I TSH ITS Impressions Chest X-Ray 01/21/19 07:03 IMPRESSION: No acute cardiopulmonary disease. D/ / 01/21/2019 09:23:23 Lawrence Reyes MD / earnold Interpreting Provider: Lawrence Reyes MD Echocardiogram 01/22/19 13:12 Impressions: LVEF 60%. Normal LV chamber size and function. Mild concentric left ventricular hypertrophy. Mild left ventricular diastolic dysfunction. Grossly normal right ventricular structure and function. No obvious significant valvular dysfunction. No evidence of pulmonary hypertension identified. RVSP not well obtained. Left Ventricular Wall Motion: Rest Echo Findings All wall segments showed normal motion. Findings: Study Quality * Technically sub-optimal due to body habitus. ECG Findings * Sinus bradycardia. Left Ventricle * LVEF 60%. * Normal LV chamber size and function. * Mild concentric left ventricular hypertrophy. * Mild left ventricular diastolic dysfunction. Right Ventricle * Grossly normal right ventricular structure and function. Left Atrium * Mildly dilated left atrium. Right Atrium * Normal right atrial size. Interatrial Septum * Interatrial septum not well evaluated. Aortic Valve * Aortic valve not well visualized. * No aortic regurgitation. * No aortic stenosis. Mitral Valve * Normal mitral valve structure and function. * No mitral stenosis. * No mitral regurgitation. Tricuspid Valve * Normal tricuspid valve structure and function. * Trace tricuspid regurgitation. * No evidence of pulmonary hypertension. Pulmonic Valve * Pulmonic valve not well visualized. Aorta * Normally sized aortic root. Pericardium * The pericardium appears normal. IVC * The IVC is not well evaluated. Pulmonary Artery * Pulmonary artery not well visualized. Active Medications Acetaminophen (Tylenol) 650 mg PO Q6HR PRN PRN Reason: Mild Pain/Fever Stop: 07/23/19 08:35 Aspirin (Aspirin Ec) 81 mg PO DAILY [facility] Stop: 07/23/19 09:01 Last Admin: 01/24/19 08:20 Dose: 81 mg Documented by: Atorvastatin Calcium (Lipitor) 40 mg PO DAILY [facility] Stop: 07/24/19 09:01 Last Admin: 01/24/19 08:20 Dose: 40 mg Documented by: Dextrose/Water (Dextrose 50% (Syg)) 25 ml IVP AD PRN PRN Reason: Hypoglycemia Stop: 07/23/19 08:40 Glucagon (Glucagen) 1 mg IM ONCE PRN PRN Reason: Hypoglycemia Stop: 07/23/19 08:40 Glucose (Gluctose) 15 gm PO ONCE PRN PRN Reason: Hypoglycemia Stop: 07/23/19 08:40 Glucose (Gluctose) 30 gm PO ONCE PRN PRN Reason: Hypoglycemia Stop: 07/23/19 08:40 Heparin Sodium (Porcine) (Heparin) 5,000 unit SQ Q8HCO [facility] Stop: 07/23/19 14:01 Last Admin: 01/24/19 13:19 Dose: Not Given Documented by: Dextrose (Dextrose 5%) 1,000 mls @ 100 mls/hr IVC .Q10H PRN PRN Reason: HYPOGLYCEMIA Stop: 07/23/19 08:40 Insulin Detemir (Levemir) 36 unit 0.25 unit/kg (36 unit) SQ HS [facility] Stop: 07/23/19 21:01 Last Admin: 01/23/19 20:41 Dose: 36 unit Documented by: Insulin Human Lispro (Humalog) 12 units 0.08 units/kg (12 units) SQ TIDWM [facility] Stop: 07/23/19 12:01 Last Admin: 01/24/19 11:29 Dose: Not Given Documented by: Lisinopril (Zestril) 5 mg PO DAILY [facility]; Protocol Stop: 07/27/19 09:01 Metoprolol Tartrate (Lopressor) 25 mg PO BID [facility] Stop: 07/26/19 21:01 Naloxone HCl (Narcan) 0.4 mg IVP Q2MPRN PRN PRN Reason: SEE COMMENTS Stop: 07/23/19 08:35 Ondansetron HCl (Zofran) 4 mg IVP Q8HR PRN PRN Reason: Nausea And Vomiting Stop: 07/23/19 08:35 Tamsulosin HCl (Flomax) 0.4 mg PO DAILY [facility]; Protocol Stop: 07/23/19 09:01 Last Admin: 01/24/19 08:20 Dose: 0.4 mg Documented by: Vitamin D (Vitamin D) 1,000 unit PO DAILY [facility] Stop: 07/23/19 09: Last Admin: 01/24/19 08:20 Dose: 1,000 unit Documented by: - Imaging and Cardiology Stress Test: pending Echo: report reviewed Cardiac cath: report reviewed - EKG Interpretation EKG results cardiology: personally reviewed, other (reviewed with Dr. Enrrique Guardado, appears to be RVOT VT, nonsustained) Consult Discharge Plan - Plan Instructions: Supraventricular Tachycardia (GEN), Sleep Apnea Syndrome (GEN), CPAP (GEN) Referrals: Randy Murray PARTS PROCESSOR [Advanced Practice Nurse] - (Per the office they will call the patient at home with a follow up appointment) Jose Francisco Lee [Non-Partnered Physician] - 02/09/19 10:40 am Prescriptions: Metoprolol [Lopressor] 25 mg PO BID 30 Days #60 tablet Transmission Status: Received by [id number] Lisinopril [Zestril] 5 mg PO DAILY 30 Days #30 tablet Transmission Status: Received by [id number] Cardiac Rehab - Cardiac Rehab Cardiac Rehab: Phase I consult completed. Patient was educated on why Cardiac Rehabilitation is beneficial to his/her health. Participating in a cardiac rehabilitation can improve the following: strengthen your heart, improve ejection fraction, weight reduction, decrease cholesterol levels, lower blood pressure, lower blood sugar, improve stamina, and enhance self-image. If he/she has any questions, they were instructed to call [facility] at [phone]. <Enrrique Guardado - Last Filed: 01/27/19 14:10> Date of Encounter: 01/27/19 - Attending Attestation I have personally performed a face to face evaluation on this patient. I have reviewed and agree with the care plan. History and Exam by me shows: Proabable outflow tract tachycardia. RVOT. Ischemic w/u appears negative. Would titrate BBlockers as needed. Discontinue amio. Assessment and Plan Discussion w patient/family: The assessment and plan as outlined above was discussed with the patient and/or family members who expressed understanding and agreement. All questions were answered. Thank you for involving us in the care of your patient. Please call with any questions. History of Present Illness History of present illness: Mr. Moore is a 78 year old male All Systems Review: The remainder of the systems were reviewed and are negative Results 01/26/19 03:45 01/26/19 03:45 Cardiac Rehab - Cardiac Rehab Cardiac Rehab: Phase I consult completed. Patient was educated on why Cardiac Rehabilitation is beneficial to his/her health. Participating in a cardiac rehabilitation can improve the following: strengthen your heart, improve ejection fraction, weight reduction, decrease cholesterol levels, lower blood pressure, lower blood sugar, improve stamina, and enhance self-image. If he/she has any questions, they were instructed to call [facility] at [phone].
[2019-01-24] MEDS: Insulin DETEMIR 100 UNIT/ML X5UNITS SQ SCH (20:25)
[2019-01-25 04:32] LABS: BUN/Creatinine Ratio 19 (6-26); Blood Urea Nitrogen 15 mg/dL (8-23); Carbon Dioxide 24 mEq/L (23-29); Chloride 109 mEq/L (98-107); Glucose 146 mg/dL (70-105); Osmolality,Calculated 289 (280-300); Potassium 3.9 mEq/L (3.5-5.1); Sodium 138 mEq/L (136-145); eGFR For African Americans > 60 (> 60); eGFR For Non-African Americans > 60 (> 60)
[2019-01-25] MEDS: *HR* Heparin 5,000 UNIT/ML VIAL SQ SCH ×3 (04:58→20:12)
[2019-01-25 05:39] LABS: ABG Base Excess 2 mEq/L (-2 to 3); ABG HCO3 26 mEq/L (21-27); ABG Oxygen Saturation 88 % (95-98); ABG PCO2 39 mmHg (35-45); ABG PH 7.43 pH Units (7.32-7.45); ABG PO2 52 mmHg (85-104); ABG TCO2 27 mEq/L (20-26)
[2019-01-25] MEDS ORDERED: Regadenoson 0.4 MG/5 ML SYRINGE IVP ONE (06:25)
[2019-01-25] MEDS: Insulin LISPRO 300 UNITS/3 ML VIAL SQ SCH ×3 (07:57→17:27)
[2019-01-25] MEDS: Aspirin Enteric Coated 81 MG Tablet PO SCH (07:58)
[2019-01-25] MEDS: Cholecalciferol (D-3) 1,000 UNIT (25MCG) TABLET PO SCH (07:59)
--- NOTE | 2019-01-25 08:36 | Cardiology Progress Note ---
Date of Encounter: 01/25/19 Time of Encounter: 08:20 Assessment and Plan (1) Ventricular tachycardia (paroxysmal) Current Visit: Yes Status: Acute Per Cardiology: Previous records reviewed: "VT reportedly noted during sleep study. Intermittent brief episodes since admission. Morphology on ECG sugggests possibly outflow tract etiology". Was on amiodarone drip per primary service on admission and had been on PO amiodarone. TSH, magnesium, potassium stable. Troponin negative. Echo with preserved EF 60%, no obvious significant valvular dysfunction, mild diastolic dysfunction, no pulmonary hypertension, NSWMA. Amio off and now on BB. 12 hr tele shows PVCs and couplets, no runs of NSVT. On lopressor 25mg PO BID, current HR in 50's. (2) CAD (coronary artery disease) Current Visit: Yes Status: Acute Per Cardiology: s/p LHC: Impressions: There is moderate one vessel coronary artery disease. Small non dominant RCA disease NST to evaluate significance of ischemia in small territory as possible culprit for VT Lesion Findings/Interventions * Left Main Coronary Artery The LMCA is angiographically free of disease. * Left Anterior Descending The LAD is angiographically free of disease. The 1st Diagonal is angiographically free of disease. * Circumflex The Circumflex is angiographically free of disease. The 1st Marginal is angiographically free of disease. The Left PDA is angiographically free of disease. * Right Coronary Artery There is a 60% stenosis in the Proximal RCA. Nonexercise nuclear stress test pending. On asa,statin, BB, ACEI. Qualifiers: Coronary Disease-Associated Artery/Lesion type: [place] artery [place] vs. transplanted heart: [place] heart Associated angina: without angina Qualified Code(s): I25.10 - Atherosclerotic heart disease of [place] coronary artery without angina pectoris Discussion w patient/family: The assessment and plan as outlined above was discussed with the patient and/or family members who expressed understanding and agreement. All questions were answered. Thank you for involving us in the care of your patient. Please call with any questions. Subjective Principal diagnosis: NSVT Interval history: Reports attempted sleep study overnight again and did have some chest pressure. He denies any concerns or complaints this morning. Denies any concerns as right groin site. Objective Vital Signs, Last 4 Hours Temp Pulse Resp BP Pulse Ox 01/25/19 07:27 98.2 F 59 20 128/68 01/25/19 05:45 94 01/25/19 05:32 23 97 General: Conversant, No Apparent Distress HEENT: Atraumatic, Normocephaly, Mucus Membranes Moist Neck: No JVD, Normal carotid pulses Cardiac: Reg Rate and Rhythm, Normal S1 and S2, No Murmur Lungs: Normal Breath Sounds, No Wheeze, Rales, Rhonchi Neuro: Alert and responsive, No focal deficits noted Abdomen: Soft, Non-Tender Skin: No rashes noted on visualized skin Musculoskeletal: No Chest Wall Tenderness Extremities: No Clubbing, No Cyanosis, No Edema, Normal Pulses Results 01/23/19 01:23 01/25/19 03:26 Lab Results Laboratory Tests 01/25/19 03:26 Potassium 3.9 Creatinine 0.81 Est GFR (Non-Af Amer) > 60 Active Medications Acetaminophen (Tylenol) 650 mg PO Q6HR PRN PRN Reason: Mild Pain/Fever Stop: 07/23/19 08:35 Aspirin (Aspirin Ec) 81 mg PO DAILY [facility] Stop: 07/23/19 09:01 Last Admin: 01/25/19 07:58 Dose: 81 mg Documented by: Atorvastatin Calcium (Lipitor) 40 mg PO DAILY [facility] Stop: 07/24/19 09:01 Last Admin: 01/25/19 07:58 Dose: 40 mg Documented by: Dextrose/Water (Dextrose 50% (Syg)) 25 ml IVP AD PRN PRN Reason: Hypoglycemia Stop: 07/23/19 08:40 Glucagon (Glucagen) 1 mg IM ONCE PRN PRN Reason: Hypoglycemia Stop: 07/23/19 08:40 Glucose (Gluctose) 15 gm PO ONCE PRN PRN Reason: Hypoglycemia Stop: 07/23/19 08:40 Glucose (Gluctose) 30 gm PO ONCE PRN PRN Reason: Hypoglycemia Stop: 07/23/19 08:40 Heparin Sodium (Porcine) (Heparin) 5,000 unit SQ Q8HCO [facility] Stop: 07/23/19 14:01 Last Admin: 01/25/19 04:58 Dose: 5,000 unit Documented by: Dextrose (Dextrose 5%) 1,000 mls @ 100 mls/hr IVC .Q10H PRN PRN Reason: HYPOGLYCEMIA Stop: 07/23/19 08:40 Insulin Detemir (Levemir) 36 unit 0.25 unit/kg (36 unit) SQ HS [facility] Stop: 07/23/19 21:01 Last Admin: 01/24/19 20:25 Dose: 36 unit Documented by: Insulin Human Lispro (Humalog) 12 units 0.08 units/kg (12 units) SQ TIDWM [facility] Stop: 07/23/19 12:01 Last Admin: 01/25/19 07:57 Dose: Not Given Documented by: Lisinopril (Zestril) 5 mg PO DAILY [facility]; Protocol Stop: 07/27/19 09:01 Last Admin: 01/25/19 07:58 Dose: 5 mg Documented by: Metoprolol Tartrate (Lopressor) 25 mg PO BID [facility] Stop: 07/26/19 21:01 Last Admin: 01/25/19 07:58 Dose: 25 mg Documented by: Naloxone HCl (Narcan) 0.4 mg IVP Q2MPRN PRN PRN Reason: SEE COMMENTS Stop: 07/23/19 08:35 Ondansetron HCl (Zofran) 4 mg IVP Q8HR PRN PRN Reason: Nausea And Vomiting Stop: 07/23/19 08:35 Tamsulosin HCl (Flomax) 0.4 mg PO DAILY [facility]; Protocol Stop: 07/23/19 09:01 Last Admin: 01/25/19 07:58 Dose: 0.4 mg Documented by: Vitamin D (Vitamin D) 1,000 unit PO DAILY [facility] Stop: 07/23/19 09:01 Last Admin: 01/25/19 07:59 Dose: 1,000 unit Documented by: - Imaging and Cardiology Stress Test: pending Echo: report reviewed Cardiac cath: report reviewed Consult Discharge Plan - Plan Referrals: Jose Francisco Lee [Non-Partnered Physician] - 02/09/19 10:40 am Cardiac Rehab - Cardiac Rehab Cardiac Rehab: Phase I consult completed. Patient was educated on why Cardiac Rehabilitation is beneficial to his/her health. Participating in a cardiac rehabilitation can improve the following: strengthen your heart, improve ejection fraction, weight reduction, decrease cholesterol levels, lower blood pressure, lower blood sugar, improve stamina, and enhance self-image. If he/she has any questions, they were instructed to call [facility] at [phone].
--- NOTE | 2019-01-25 12:57 | Internal Med Progress Note ---
Hospitalist Progress Note - Encounter Date of Encounter: 01/25/19 Time of Encounter: 12:55 - Subjective Interval History: Patient was seen and examined at bedside today. Pt denies any chest pain, palpitation, and difficult in breathing. Patient denies any acute issues and concerns overnight. - Exam Vitals: Temp Pulse Resp BP Pulse Ox 98.2 F 59 20 128/68 94 01/25/19 07:27 01/25/19 07:27 01/25/19 07:27 01/25/19 07:27 01/25/19 05:45 Exam: General: A & O 3, morbidly obese male. Apperas stated for his age HENNT: PERRLA. Head atraumatic and makes supple CVS S1 and S2 regular, no murmur RS: Clear to air entry bilaterally, no wheeze, no crackles Abdomen: Soft and nontender. Bowel sounds normal 4 Extremities: No cyanosis, clubbing, and edema Neurology: Cranial 2 through 12 normal. Motor strength 5/5 bilaterally. Sensation intact - Assessment and Plan (1) Ventricular tachycardia (paroxysmal) Current Visit: Yes Status: Acute Assessment and Plan: The patient is currently asymptomatic. Telemetry reviewed. Patient did not had NSVT overnight. Currently placed on Lopressor 25 mg twice a day. Amiodarone was discontinued. Patient is having 2 day stress test. One part was doen today and other one will be tomorrow. Anticipate with discharge tomorrow given no acute events on telemetry overnight (2) Diabetes Current Visit: Yes Status: Acute Assessment and Plan: Continue basal and bolus regimen continue to monitor blood glucose. (3) Hypertension Current Visit: Yes Status: Acute Assessment and Plan: Continue lisinopril (4) Hyperlipidemia Current Visit: Yes Status: Acute Assessment and Plan: Continue atorvastatin (5) BPH (benign prostatic hyperplasia) Current Visit: Yes Status: Acute Assessment and Plan: Continue tamsulosin monitor strict I's and O's (6) NETTIE on CPAP Current Visit: Yes Status: Acute Assessment and Plan: Continue to encourage CPAP use, order has been placed with CPAP and respiratory therapy consult (7) Morbid obesity with BMI of 40.0-44.9, adult Current Visit: Yes Status: Acute Assessment and Plan: Continue to encourage lifestyle modification-diet and exercise (8) DVT prophylaxis Current Visit: Yes Status: Acute Assessment and Plan: Heparin SC - Time Spent with Patient Total time spent is greater than 50% in coordination of care (as documented) at patient's floor/unit and/or counseling patient: less than 15 minutes Plan of Care Discussed with: patient Internal Medicine: Result - Labs CBC & Chem 7: 01/23/19 01:23 01/25/19 03:26 Labs: BMP 01/25/19 03:26 Sodium 138 Potassium 3.9 Chloride 109 H Carbon Dioxide 24 BUN 15 Creatinine 0.81 Glucose 146 H Calcium 9.0 - ABG Interpretation ABG results: ABG ABG pH 7.43 pH Units (7.32-7.45) 01/25/19 05:31 ABG pCO2 39 mmHg (35-45) 01/25/19 05:31 ABG pO2 52 mmHg (85-104) L 01/25/19 05:31 ABG O2 Saturation 88 % (95-98) L 01/25/19 05:31 PT/INR, D-dimer PT 11.5 Seconds (9.4-12.1) 01/21/19 06:47 Consult Discharge Plan - Plan Referrals: Jose Francisco Lee [Non-Partnered Physician] - 02/09/19 10:40 am (2) Diabetes Qualifiers: Diabetes mellitus type: type 2 Diabetes mellitus [facility] insulin use: with oil heaterman use Diabetes mellitus complication status: without complication Qualified Code(s): E11.9 - Type 2 diabetes mellitus without complications; Z79.4 - long term care phlebotomist (current) use of insulin (3) Hypertension Qualifiers: Hypertension type: essential hypertension Qualified Code(s): I10 - Essential (primary) hypertension (4) Hyperlipidemia Qualifiers: Hyperlipidemia type: unspecified Qualified Code(s): E78.5 - Hyperlipidemia, unspecified (5) BPH (benign prostatic hyperplasia) Qualifiers: Lower urinary tract symptom detail: unspecified Qualified Code(s): N40.1 - Benign prostatic hyperplasia with lower urinary tract symptoms
[2019-01-25] MEDS: Insulin DETEMIR 100 UNIT/ML X5UNITS SQ SCH (20:14)
[2019-01-26 04:27] LABS: Basophils % 0.6 %; Eosinophils # 0.2 K/mcL (0.0-0.6); Eosinophils % 2.6 %; Hematocrit 41.4 % (37.5-50.1); Hemoglobin 13.4 g/dL (12.9-16.9); Immature Granulocytes % 0.3 % (0-4); Lymphocytes # 2.1 K/mcL (0.6-4.6); Lymphocytes % 30.4 %; Mean Corpuscular HGB Conc 32.4 g/dL (31.6-35.5); Mean Corpuscular Hemoglobin 29.1 pg (28.0-33.3); Monocytes # 0.7 K/mcL (0.0-1.3); Monocytes % 10.1 %; Neutrophils # 3.9 K/mcL (1.6-8.9); Platelet Count 183 K/mcL (140-400); Red Cell Distribution Width 13.7 % (11.5-14.5); White Blood Count 6.9 K/mcL (4.3-11.1)
[2019-01-26 04:34] LABS: BUN/Creatinine Ratio 19 (6-26); Blood Urea Nitrogen 16 mg/dL (8-23); Calcium 8.7 mg/dL (8.6-10.3); Carbon Dioxide 22 mEq/L (23-29); Chloride 109 mEq/L (98-107); Glucose 143 mg/dL (70-105); Osmolality,Calculated 292 (280-300); Potassium 3.7 mEq/L (3.5-5.1); Sodium 139 mEq/L (136-145); eGFR For African Americans > 60 (> 60); eGFR For Non-African Americans > 60 (> 60)
[2019-01-26] MEDS: *HR* Heparin 5,000 UNIT/ML VIAL SQ SCH (05:35)
[2019-01-26] MEDS: Aspirin Enteric Coated 81 MG Tablet PO SCH (07:45)
[2019-01-26] MEDS: Insulin LISPRO 300 UNITS/3 ML VIAL SQ SCH ×2 (07:57→12:02)
--- NOTE | 2019-01-26 10:22 | Discharge Summary ---
- NOTES TO OUTPATIENT PROVIDER Notes to Outpatient Provider: Patient will continue to follow cardiology as outpatient in 1-2 weeks. Antihypertensives and beta aristeo adjusted per cardiology. Date of Encounter: 01/26/19 Time of Encounter: : - Discharge Diagnosis (1) Ventricular tachycardia (paroxysmal) Priority: Primary Status: Acute (2) Diabetes Priority: Secondary Status: Acute Qualifiers: Diabetes mellitus type: type 2 Diabetes mellitus longterm insulin use: with longterm use Diabetes mellitus complication status: without complication Qualified Code(s): E11.9 - Type 2 diabetes mellitus without complications; Z79.4 - FPC (current) use of insulin (3) Hypertension Priority: Secondary Status: Acute Qualifiers: Hypertension type: essential hypertension Qualified Code(s): I10 - Essential (primary) hypertension (4) Hyperlipidemia Priority: Secondary Status: Acute Qualifiers: Hyperlipidemia type: unspecified Qualified Code(s): E78.5 - Hyperlipidemia, unspecified (5) BPH (benign prostatic hyperplasia) Priority: Secondary Status: Acute Qualifiers: Lower urinary tract symptom detail: unspecified Qualified Code(s): N40.1 - Benign prostatic hyperplasia with lower urinary tract symptoms (6) NETTIE on CPAP Priority: Secondary Status: Acute (7) Morbid obesity with BMI of 40.0-44.9, adult Priority: Secondary Status: Acute (8) DVT prophylaxis Priority: Secondary Status: Acute Hospital course: Mr. Moore is a 78 year old male past medical history of diabetes, hypertension, BPH, NETTIE on CPAP, hypertension came with ventricular arrhythmia while he was undergoing sleep study. Patient was started on amiodarone drip. Patient underwent LHC with cardiology which showed 60% proximal RCA. Patient did not have any further telemetry events. He was started on beta aristeo. Patient u nderwent stress test per cardiology with some concern for RV outflow tract obstruction causing NSVT. Stress test was unremarkable. Cardiology was okay for patient to be discharged to follow-up as outpatient. We will discharged with Lopressor 25 twice a day and decrease dose of lisinopril and hold home lisinopril/HCTZ combination.. Discharge discussed with: patient, nurse, resourcing consultant - Time Spent with Patient Total time spent providing and/or coordinating discharge services: Time spent: Greater than 30 minutes - Discharge Medications Prescriptions: New Metoprolol [Lopressor] 25 mg PO BID 30 Days #60 tablet Lisinopril [Zestril] 5 mg PO DAILY 30 Days #30 tablet Continued Tamsulosin HCl [Flomax] 0.4 mg PO DAILY Cholecalciferol (D-3) [Vitamin D] 1,000 unit PO DAILY Aspirin [Lo-Dose Aspirin EC] 81 mg PO DAILY Alfuzosin HCl [Uroxatral] 10 mg PO DAILY Metformin HCl 500 mg PO BID Insulin DETEMIR [Levemir Flextouch] 40 units PO HS Empagliflozin [Jardiance] 10 mg PO DAILY Insulin LISPRO [Humalog Kwikpen U-100] 10 units PO QPM Atorvastatin [Lipitor] 10 mg PO QPM Discontinued Lisinopril-HCTZ 20-12.5 [Prinzide 20-12.5] 1 tab PO DAILY Home Medications: Alfuzosin HCl [Uroxatral] 10 mg PO DAILY 01/21/19 [History] Aspirin [Lo-Dose Aspirin EC] 81 mg PO DAILY 01/21/19 [History] Atorvastatin [Lipitor] 10 mg PO QPM 01/21/19 [History] Cholecalciferol (D-3) [Vitamin D] 1,000 unit PO DAILY 01/21/19 [History] Empagliflozin [Jardiance] 10 mg PO DAILY 01/21/19 [History] Insulin DETEMIR [Levemir Flextouch] 40 units PO HS 01/21/19 [History] Insulin LISPRO [Humalog Kwikpen U-100] 10 units PO QPM 01/21/19 [History] Metformin HCl 500 mg PO BID 01/21/19 [History] Tamsulosin HCl [Flomax] 0.4 mg PO DAILY 01/21/19 [History] Lisinopril [Zestril] 5 mg PO DAILY 30 Days #30 tablet 01/26/19 [Rx] Metoprolol [Lopressor] 25 mg PO BID 30 Days #60 tablet 01/26/19 [Rx] Allergies/Adverse Reactions: Allergy/AdvReac Type Severity Reaction Status Date / Time No Known Allergies Allergy Unverified 01/21/19 21:41 Date of admission: 01/22/19 13:06 Primary care physician: PCP NONE Consults: 01/21/19 16:37 Consult to Cardiology [CONS] Routine Comment: Consulting Provider: Cardiology Charlotte Hall Reason for Consult: v-tach on presentation Time Notified: 16:42 Call Completed: Yes 01/22/19 11:27 Consult to Electrophysiology (EP) [CONS] Routine Consulting Provider: Electrophysiology Tiarra Reason for Consult: Ventricular tachycardia Call Completed: Yes Discharging clinician: Stevan Solomon - Constitutional Vitals: Temp Pulse Resp BP Pulse Ox 98.1 F 71 18 164/67 94 01/26/19 07:53 01/26/19 07:49 01/26/19 07:49 01/26/19 07:49 01/26/19 07:49 Exam: General: In no acute distress. morbidly obese male. Respiratory exam: CTAB. no accessory muscle use, rales, rhonchi, wheezes Cardiovascular exam: RRR, +S1, +S2. no murmur, gallop, rubs. GI/Abdominal exam: Non-tender, Non-distended, normal bowel sounds, soft, no peritoneal signs. Extremities exam: no pedal edema, pulses palpable in b/l lower extremities. no calf tenderness Neurological exam: CN II-XII intact, AO X3, no focal deficits. Skin exam: No skin rash - Patient Status Disposition: Home, Self-Care Condition: Fair - Discharge Instructions Follow Up With: Jose Francisco Lee [Non-Partnered Physician] - 02/09/19 10:40 am - Diet and Activity Activity: increase activity as tolerated
--- NOTE | 2019-01-26 11:22 | Cardiology Progress Note ---
<Madi Napier - Last Filed: 01/26/19 11:49> Date of Encounter: 01/26/19 Time of Encounter: 11:19 Assessment and Plan (1) CAD (coronary artery disease) Status: Acute Per Cardiology: s/p [facility]: Impressions: There is moderate one vessel coronary artery disease. Small non dominant RCA disease NST to evaluate significance of ischemia in small territory as possible culprit for VT Lesion Findings/Interventions * Left Main Coronary Artery The LMCA is angiographically free of disease. * Left Anterior Descending The LAD is angiographically free of disease. The 1st Diagonal is angiographically free of disease. * Circumflex The Circumflex is angiographically free of disease. The 1st Marginal is angiographically free of disease. The Left PDA is angiographically free of disease. * Right Coronary Artery There is a 60% stenosis in the Proximal RCA. Nonexercise nuclear stress is non-diagnostic for ischemia due to baseline non-specific ST and T changes.Occasional PVCs noted throughout the study. No arrhythmias. Gated EF = 53%. Small sized, mild intensity, fixed inferior defect with normal wall motion. These findings are most consistent with artifact. Perfusion imaging was negative for ischemia or infarct. On asa,statin, BB, ACEI, continue. Qualifiers: Coronary Disease-Associated Artery/Lesion type: [place] artery [place] vs. transplanted heart: [place] heart Associated angina: without angina Qualified Code(s): I25.10 - Atherosclerotic heart disease of [place] coronary artery without angina pectoris (2) Ventricular tachycardia (paroxysmal) Status: Acute Per Cardiology: Previous records reviewed: "VT reportedly noted during sleep study. Intermittent brief episodes since admission. Morphology on ECG sugggests possibly outflow tract etiology". Was on amiodarone drip per primary service on admission and had been on PO amiodarone. TSH, magnesium, potassium stable. Troponin negative. Echo with preserved EF 60%, no obvious significant valvular dysfunction, mild diastolic dysfunction, no pulmonary hypertension, NSWMA. Amio off and now on BB. Previously (EP) discussion with Dr. Enrrique Guardado, suspected RV outflow tract nonsustained VT; goal of beta aristeo titration of Lopressor 50 mg by mouth twice a day if heart rate and blood pressure will allow. Decreased ARIELA inhibitor dosage. 12 hr tele again shows PVCs and couplets, no runs of NSVT. Ave HR 59; current HR in 50's. BP stable with systiolic 110s. On lopressor 25mg PO BID, will continue current dose and not titrate at this time. Discussed and reviewed with Dr. Garcia; will sign off and will f/u as outpatient and assess need for further BB titration at that time. Discussion w patient/family: The assessment and plan as outlined above was discussed with the patient and/or family members who expressed understanding and agreement. All questions were answered. Thank you for involving us in the care of your patient. Please call with any questions. Subjective Principal diagnosis: NSVT Interval history: denies palpitations, fluttering, syncope, chest pain. Objective Vital Signs, Last 4 Hours Temp Pulse Resp BP Pulse Ox 01/26/19 07:53 98.1 F 01/26/19 07:49 71 18 164/67 94 General: Conversant, No Apparent Distress HEENT: Atraumatic, Normocephaly, Mucus Membranes Moist Neck: No JVD, Normal carotid pulses Cardiac: Reg Rate and Rhythm, Normal S1 and S2, No Murmur Lungs: Normal Breath Sounds, No Wheeze, Rales, Rhonchi Neuro: Alert and responsive, No focal deficits noted Abdomen: Soft, Non-Tender Skin: No rashes noted on visualized skin Musculoskeletal: No Chest Wall Tenderness Extremities: No Clubbing, No Cyanosis, No Edema, Normal Pulses Results 01/26/19 03:45 01/26/19 03:45 Lab Results Laboratory Tests 01/26/19 01/26/19 03:45 03:45 Hgb 13.4 Hct 41.4 BUN 16 Creatinine 0.85 Est GFR (Non-Af Amer) > 60 ITS Impressions Chest X-Ray 01/21/19 07:03 IMPRESSION: No acute cardiopulmonary disease. D/ / 01/21/2019 09:23:23 Lawrence Reyes MD / earnold Interpreting Provider: Lawrence Reyes MD Echocardiogram 01/22/19 13:12 Impressions: LVEF 60%. Normal LV chamber size and function. Mild concentric left ventricular hypertrophy. Mild left ventricular diastolic dysfunction. Grossly normal right ventricular structure and function. No obvious significant valvular dysfunction. No evidence of pulmonary hypertension identified. RVSP not well obtained. Left Ventricular Wall Motion: Rest Echo Findings All wall segments showed normal motion. Active Medications Acetaminophen (Tylenol) 650 mg PO Q6HR PRN PRN Reason: Mild Pain/Fever Stop: 07/23/19 08:35 Aspirin (Aspirin Ec) 81 mg PO DAILY [facility] Stop: 07/23/19 09:01 Last Admin: 01/26/19 07:45 Dose: 81 mg Documented by: Atorvastatin Calcium (Lipitor) 40 mg PO DAILY [facility] Stop: 07/24/19 09:01 Last Admin: 01/26/19 07:45 Dose: 40 mg Documented by: Dextrose/Water (Dextrose 50% (Syg)) 25 ml IVP AD PRN PRN Reason: Hypoglycemia Stop: 07/23/19 08:40 Glucagon (Glucagen) 1 mg IM ONCE PRN PRN Reason: Hypoglycemia Stop: 07/23/19 08:40 Glucose (Gluctose) 15 gm PO ONCE PRN PRN Reason: Hypoglycemia Stop: 07/23/19 08:40 Glucose (Gluctose) 30 gm PO ONCE PRN PRN Reason: Hypoglycemia Stop: 07/23/19 08:40 Heparin Sodium (Porcine) (Heparin) 5,000 unit SQ Q8HCO [facility] Stop: 07/23/19 14:01 Last Admin: 01/26/19 05:35 Dose: 5,000 unit Documented by: Dextrose (Dextrose 5%) 1,000 mls @ 100 mls/hr IVC .Q10H PRN PRN Reason: HYPOGLYCEMIA Stop: 07/23/19 08:40 Insulin Detemir (Levemir) 36 unit 0.25 unit/kg (36 unit) SQ HS [facility] Stop: 07/23/19 21:01 Last Admin: 01/25/19 20:14 Dose: 36 unit Documented by: Insulin Human Lispro (Humalog) 12 units 0.08 units/kg (12 units) SQ TIDWM [facility] Stop: 07/23/19 12:01 Last Admin: 01/26/19 07:57 Dose: 12 units Documented by: Lisinopril (Zestril) 5 mg PO DAILY [facility]; Protocol Stop: 07/27/19 09:01 Last Admin: 01/26/19 07:50 Dose: 5 mg Documented by: Metoprolol Tartrate (Lopressor) 25 mg PO BID [facility] Stop: 07/26/19 21:01 Last Admin: 01/26/19 07:50 Dose: 25 mg Documented by: Naloxone HCl (Narcan) 0.4 mg IVP Q2MPRN PRN PRN Reason: SEE COMMENTS Stop: 07/23/19 08:35 Ondansetron HCl (Zofran) 4 mg IVP Q8HR PRN PRN Reason: Nausea And Vomiting Stop: 07/23/19 08:35 Tamsulosin HCl (Flomax) 0.4 mg PO DAILY [facility]; Protocol Stop: 07/23/19 09:01 Last Admin: 01/26/19 07:45 Dose: 0.4 mg Documented by: Vitamin D (Vitamin D) 1,000 unit PO DAILY [facility] Stop: 07/23/19 09:01 Last Admin: 01/25/19 07:59 Dose: 1,000 unit Documented by: - Imaging and Cardiology Stress Test: report reviewed Echo: report reviewed Consult Discharge Plan - Plan Instructions: Supraventricular Tachycardia (GEN), Sleep Apnea Syndrome (GEN), CPAP (GEN) Referrals: Randy Murray CHEMISTRY LAB INSTRUCTOR [Advanced Practice Nurse] - (Per the office they will call the patient at home with a follow up appointment) Jose Francisco Lee [Non-Partnered Physician] - 02/09/19 10:40 am Prescriptions: Metoprolol [Lopressor] 25 mg PO BID 30 Days #60 tablet Transmission Status: Received by [id number] Lisinopril [Zestril] 5 mg PO DAILY 30 Days #30 tablet Transmission Status: Received by [id number] Cardiac Rehab - Cardiac Rehab Cardiac Rehab: Phase I consult completed. Patient was educated on why Cardiac Rehabilitation is beneficial to his/her health. Participating in a cardiac rehabilitation can improve the following: strengthen your heart, improve ejection fraction, weight reduction, decrease cholesterol levels, lower blood pressure, lower blood sugar, improve stamina, and enhance self-image. If he/she has any questions, they were instructed to call [facility] at [phone]. <Angeles Garcia - Last Filed: 01/26/19 15:55> Date of Encounter: 01/26/19 Assessment and Plan Discussion w patient/family: I examined this patient and my medical decision-making was reviewed with the CHEMISTRY LAB INSTRUCTOR. I agree with the documented findings, disposition and treatment plan as described. Objective Vital Signs, Last 4 Hours Temp Resp BP 01/26/19 12:00 98.1 F 18 141/70 Results 01/26/19 03:45 01/26/19 03:45 Lab Results 01/26/19 01/26/19 03:45 03:45 WBC 6.9 Hgb 13.4 Hct 41.4 Plt Count 183 Sodium 139 Potassium 3.7 Chloride 109 H Carbon Dioxide 22 L BUN 16 Creatinine 0.85 Glucose 143 H Calcium 8.7 Cardiac Rehab - Cardiac Rehab Cardiac Rehab: Phase I consult completed. Patient was educated on why Cardiac Rehabilitation is beneficial to his/her health. Participating in a cardiac rehabilitation can improve the following: strengthen your heart, improve ejection fraction, weight reduction, decrease cholesterol levels, lower blood pressure, lower blood sugar, improve stamina, and enhance self-image. If he/she has any questions, they were instructed to call [facility] at [phone].
[2019-01-26] MEDS ORDERED: FLU Vac QV 19-20 (6Month+)/PF 0.5 ML SYRINGE IM ONE (11:57)
[2019-01-26 12:05] VITALS: BP 141/70
== END 2019-01-26 13:19 | disposition home or self-care (01) | DRG 287 ==
LOC: EMEROOARM 06:29 → SUATTDRO 08:14 → 2NNU 08:14 → INTOOBSV 08:14 → 2NNU 08:28 → SUATTDRO 01-22 13:06
PROVIDERS: ADMIT Pharmacist; ATTEND Internal Medicine

== ENCOUNTER 2019-06-03 12:45 | Inpatient (IN) ==
[2019-06-03] MEDS ORDERED: *HR* Adenosine 6 MG/2 ML VIAL IVP ONE ×3 (13:06→13:25)
[2019-06-03] MEDS ORDERED: *HR* Adenosine 6 MG/2 ML SYRINGE IVP ONE (13:06)
[2019-06-03] MEDS ORDERED: 0.9 % Sodium Chloride 1,000 ML ONE (13:13)
[2019-06-03] MEDS ORDERED: Aspirin 325 MG TABLET PO ONE (13:19)
[2019-06-03] MEDS ORDERED: 0.9 % Sodium Chloride 1,000 ML IVC ONE ×2 (13:19→16:15)
[2019-06-03] MEDS ORDERED: DilTIAZem 50 MG in 0.9 % Sodium Chloride 40 ML IVC SCH (13:30)
[2019-06-03 13:32] LABS: Basophils # 0.1 K/mcL (0.0-0.2); Basophils % 0.5 %; Eosinophils # 0.1 K/mcL (0.0-0.6); Eosinophils % 0.7 %; Hemoglobin 15.4 g/dL (12.9-16.9); Immature Granulocytes % 0.1 % (0-4); Lymphocytes % 20.9 %; Mean Corpuscular HGB Conc 32.1 g/dL (31.6-35.5); Mean Corpuscular Hemoglobin 29.1 pg (28.0-33.3); Mean Corpuscular Volume 90.6 fL (83.0-100.0); Mean Platelet Volume 11.3 fL (9.4-12.4); Monocytes # 0.9 K/mcL (0.0-1.3); Monocytes % 9.8 %; Neutrophils # 6.4 K/mcL (1.6-8.9); Platelet Count 206 K/mcL (140-400); Red Cell Distribution Width 14.4 % (11.5-14.5); White Blood Count 9.5 K/mcL (4.3-11.1)
[2019-06-03 13:37] LABS: INR 1.1; Prothrombin Time 12.5 Seconds (9.4-12.1)
[2019-06-03 13:40] LABS: Activated Partial Thrombo Time 33.5 Seconds (26.0-36.0)
[2019-06-03 13:51] LABS: BUN/Creatinine Ratio 19 (6-26); Blood Urea Nitrogen 17 mg/dL (8-23); Calcium 9.2 mg/dL (8.6-10.3); Carbon Dioxide 23 mEq/L (23-29); Chloride 107 mEq/L (98-107); Glucose 177 mg/dL (70-105); Magnesium 1.8 mg/dL (1.6-2.6); Osmolality,Calculated 294 (280-300); Potassium 3.9 mEq/L (3.5-5.1); Sodium 139 mEq/L (136-145); eGFR For African Americans > 60 (> 60); eGFR For Non-African Americans > 60 (> 60)
[2019-06-03 13:52] LABS: Troponin I < 0.03 ng/mL (< 0.04)
[2019-06-03 14:05] LABS: Thyroid Stimulating Hormone 2.256 mcIU/mL (0.340-5.600)
[2019-06-03] MEDS ORDERED: *HR* Midazolam HCl 5 MG/ML VIAL IVP ONE (15:26)
[2019-06-03] MEDS ORDERED: *HR* Midazolam HCl 2 MG/2 ML VIAL IVP ONE (15:30)
[2019-06-03] MEDS ORDERED: Amiodarone Premix 150 MG/100 ML BAG IVPB ONE ×3 (15:51→17:28)
[2019-06-03] MEDS ORDERED: Amiodarone 150 MG in D5% in Water 100 ML IVPB ONE (15:52)
[2019-06-03] MEDS ORDERED: Amiodarone Premix 360 MG/200 ML BAG IVC ONE (15:54)
[2019-06-03] MEDS ORDERED: *HR* Metoprolol 5 MG/5 ML VIAL IVP ONE ×4 (17:14→18:33)
[2019-06-03] MEDS ORDERED: Naloxone 0.4 MG/ML INJ IVP PRN (17:56)
[2019-06-03] MEDS ORDERED: D5% in Water 1,000 ML IVC PRN (17:59)
[2019-06-03] MEDS ORDERED: Dextrose Gel 15 GM/37.5 ML TUBE PO PRN ×2 (17:59)
[2019-06-03] MEDS ORDERED: *HR* Dextrose 50 % in Water (Syg) 50 ML SYRINGE IVP PRN (17:59)
[2019-06-03] MEDS ORDERED: *HR* Heparin 5,000 UNIT/ML VIAL IVP PRN ×2 (18:02)
[2019-06-03] MEDS ORDERED: *HR* Heparin 5,000 UNIT/ML VIAL IVP ONE (18:02)
[2019-06-03] MEDS: Heparin 25,000 UNIT/250 ML D5W 25,000 UNIT/250 ML IV.SOLN IVC SCH (19:40)
[2019-06-03] MEDS: Esmolol 2.5 GM/250 ML MLS IVC SCH ×2 (19:40→23:12)
[2019-06-03] MEDS: Insulin LISPRO 300 UNITS/3 ML VIAL SQ SCH (20:19)
[2019-06-03] MEDS: Furosemide 40 MG/4 ML VIAL IVP SCH (20:20)
[2019-06-03] MEDS: Insulin DETEMIR 100 UNIT/ML X5UNITS SQ SCH (20:23)
[2019-06-03] MEDS ORDERED: Furosemide 40 MG in 0.9 % Sodium Chloride 50 ML IV SCH (21:00)
[2019-06-03] MEDS: Amiodarone Premix 360 MG/200 ML BAG IVC SCH (22:27)
[2019-06-03 22:30] LABS: Clarity,Urine Clear (Clear); Color,Urine Yellow (Yellow)
[2019-06-03 22:31] LABS: Bilirubin,Urine Negative (Negative); Blood,Urine Negative (Negative); Glucose,Urine (UA) 250 mg/dL (Normal); Ketones,Urine Negative (Negative); Leukocyte Esterase,Urine Negative (Negative); Nitrite,Urine Negative (Negative); PH,Urine 5.5 pH Units (5.0-8.0); Protein,Urine Trace mg/dL (Neg-Trace); Specific Gravity,Urine 1.015 (1.010-1.025); Urobilinogen,Urine Normal (Normal)
[2019-06-04] MEDS: Insulin LISPRO 300 UNITS/3 ML VIAL SQ SCH ×4 (00:12→16:32)
[2019-06-04] MEDS: Esmolol 2.5 GM/250 ML MLS IVC SCH ×5 (00:12→21:47)
[2019-06-04] MEDS: Heparin 25,000 UNIT/250 ML D5W 25,000 UNIT/250 ML IV.SOLN IVC SCH ×2 (03:20→07:54)
[2019-06-04 04:40] LABS: Basophils # 0.1 K/mcL (0.0-0.2); Basophils % 0.6 %; Eosinophils # 0.1 K/mcL (0.0-0.6); Eosinophils % 1.6 %; Hematocrit 42.9 % (37.5-50.1); Immature Granulocytes % 0.2 % (0-4); Lymphocytes # 2.6 K/mcL (0.6-4.6); Lymphocytes % 30.3 %; Mean Corpuscular HGB Conc 31.9 g/dL (31.6-35.5); Mean Corpuscular Volume 90.7 fL (83.0-100.0); Mean Platelet Volume 11.7 fL (9.4-12.4); Monocytes # 0.9 K/mcL (0.0-1.3); Monocytes % 10.2 %; Platelet Count 180 K/mcL (140-400); Red Blood Count 4.73 M/mcL (4.19-5.50); Red Cell Distribution Width 14.6 % (11.5-14.5); Segmented Neutrophils % 57.1 %; White Blood Count 8.7 K/mcL (4.3-11.1)
[2019-06-04 04:48] LABS: Hemoglobin 13.7 g/dL (12.9-16.9)
[2019-06-04 05:07] LABS: BUN/Creatinine Ratio 15 (6-26); Blood Urea Nitrogen 15 mg/dL (8-23); Calcium 8.5 mg/dL (8.6-10.3); Carbon Dioxide 27 mEq/L (23-29); Chloride 104 mEq/L (98-107); Glucose 193 mg/dL (70-105); Magnesium 2.1 mg/dL (1.6-2.6); Osmolality,Calculated 298 (280-300); Potassium 3.9 mEq/L (3.5-5.1); Sodium 141 mEq/L (136-145); eGFR For African Americans > 60 (> 60); eGFR For Non-African Americans > 60 (> 60)
[2019-06-04] MEDS ORDERED: Dextrose Gel 15 GM/37.5 ML TUBE PO PRN ×2 (07:37)
[2019-06-04] MEDS ORDERED: D5% in Water 1,000 ML IVC PRN (07:37)
[2019-06-04] MEDS ORDERED: *HR* Dextrose 50 % in Water (Syg) 50 ML SYRINGE IVP PRN (07:37)
[2019-06-04] MEDS: Furosemide 40 MG/4 ML VIAL IVP SCH ×2 (07:59→20:02)
[2019-06-04] MEDS: Amiodarone Premix 360 MG/200 ML BAG IVC SCH (08:19)
[2019-06-04] MEDS ORDERED: Perflutren Lipid Microsphere 1.3 ML in 0.9 % Sodium Chloride 8.7 ML IVP ONE (12:12)
[2019-06-04] MEDS: Aspirin 81 MG TAB.CHEW PO SCH (13:41)
[2019-06-04] MEDS ORDERED: *HR* Rivaroxaban 10 MG TABLET PO SCH (17:00)
[2019-06-04] MEDS: Insulin DETEMIR 100 UNIT/ML X5UNITS SQ SCH (20:03)
[2019-06-04] MEDS ORDERED: Hydrocortisone 1% OINT 28 GM TUBE TP PRN (20:37)
[2019-06-05] MEDS: Esmolol 2.5 GM/250 ML MLS IVC SCH ×2 (03:17→10:20)
[2019-06-05 04:21] LABS: Basophils # 0.1 K/mcL (0.0-0.2); Basophils % 0.6 %; Eosinophils # 0.1 K/mcL (0.0-0.6); Eosinophils % 1.8 %; Immature Granulocytes % 0.4 % (0-4); Lymphocytes # 1.7 K/mcL (0.6-4.6); Lymphocytes % 21.4 %; Mean Corpuscular HGB Conc 31.8 g/dL (31.6-35.5); Mean Corpuscular Hemoglobin 28.9 pg (28.0-33.3); Mean Corpuscular Volume 90.7 fL (83.0-100.0); Mean Platelet Volume 11.2 fL (9.4-12.4); Monocytes # 0.9 K/mcL (0.0-1.3); Monocytes % 10.8 %; Neutrophils # 5.2 K/mcL (1.6-8.9); Platelet Count 193 K/mcL (140-400); Red Blood Count 4.85 M/mcL (4.19-5.50); Red Cell Distribution Width 14.2 % (11.5-14.5)
[2019-06-05 04:40] LABS: BUN/Creatinine Ratio 15 (6-26); Blood Urea Nitrogen 14 mg/dL (8-23); Carbon Dioxide 31 mEq/L (23-29); Chloride 106 mEq/L (98-107); Glucose 99 mg/dL (70-105); Osmolality,Calculated 297 (280-300); Potassium 3.5 mEq/L (3.5-5.1); Sodium 143 mEq/L (136-145); eGFR For African Americans > 60 (> 60); eGFR For Non-African Americans > 60 (> 60)
[2019-06-05] MEDS: Aspirin 81 MG TAB.CHEW PO SCH (08:40)
[2019-06-05] MEDS: Insulin LISPRO 300 UNITS/3 ML VIAL SQ SCH ×3 (08:41→16:47)
[2019-06-05] MEDS ORDERED: Dextrose Gel 15 GM/37.5 ML TUBE PO PRN ×4 (13:09)
[2019-06-05] MEDS ORDERED: *HR* Dextrose 50 % in Water (Syg) 50 ML SYRINGE IVP PRN (13:09)
[2019-06-05] MEDS ORDERED: D5% in Water 1,000 ML IVC PRN (13:09)
[2019-06-05] MEDS ORDERED: Hydrocortisone 1% OINT 28 GM TUBE TP PRN (13:09)
[2019-06-05] MEDS ORDERED: Naloxone 0.4 MG/ML INJ IVP PRN (13:09)
[2019-06-05] MEDS: *HR* Rivaroxaban 10 MG TABLET PO SCH (16:39)
[2019-06-05] MEDS: Furosemide 40 MG TABLET PO SCH (16:40)
[2019-06-05] MEDS ORDERED: Furosemide 40 MG TABLET PO SCH (17:00)
[2019-06-05] MEDS: Insulin DETEMIR 100 UNIT/ML X5UNITS SQ SCH (20:56)
[2019-06-06 02:50] LABS: Basophils % 0.5 %; Eosinophils # 0.2 K/mcL (0.0-0.6); Eosinophils % 2.3 %; Hematocrit 42.2 % (37.5-50.1); Hemoglobin 13.8 g/dL (12.9-16.9); Immature Granulocytes % 0.2 % (0-4); Lymphocytes % 23.4 %; Mean Corpuscular HGB Conc 32.7 g/dL (31.6-35.5); Mean Corpuscular Hemoglobin 29.6 pg (28.0-33.3); Mean Corpuscular Volume 90.4 fL (83.0-100.0); Mean Platelet Volume 11.3 fL (9.4-12.4); Monocytes % 11.6 %; Neutrophils # 5.4 K/mcL (1.6-8.9); Platelet Count 189 K/mcL (140-400); Red Blood Count 4.67 M/mcL (4.19-5.50); Red Cell Distribution Width 14.1 % (11.5-14.5); White Blood Count 8.7 K/mcL (4.3-11.1)
[2019-06-06 03:06] LABS: BUN/Creatinine Ratio 20 (6-26); Blood Urea Nitrogen 17 mg/dL (8-23); Calcium 8.9 mg/dL (8.6-10.3); Carbon Dioxide 27 mEq/L (23-29); Chloride 104 mEq/L (98-107); Glucose 145 mg/dL (70-105); Osmolality,Calculated 292 (280-300); Potassium 3.6 mEq/L (3.5-5.1); Sodium 139 mEq/L (136-145); eGFR For African Americans > 60 (> 60); eGFR For Non-African Americans > 60 (> 60)
[2019-06-06] MEDS: Insulin LISPRO 300 UNITS/3 ML VIAL SQ SCH ×3 (07:58→17:37)
[2019-06-06] MEDS: Aspirin 81 MG TAB.CHEW PO SCH (07:59)
[2019-06-06] MEDS: Furosemide 40 MG TABLET PO SCH ×2 (08:00→17:37)
[2019-06-06] MEDS: *HR* Rivaroxaban 10 MG TABLET PO SCH (17:37)
[2019-06-06] MEDS ORDERED: Metoprolol 100 MG TABLET PO SCH (21:00)
[2019-06-06] MEDS ORDERED: *HR* Metoprolol 5 MG/5 ML VIAL IVP ONE ×2 (21:31→21:40)
[2019-06-06] MEDS: Insulin DETEMIR 100 UNIT/ML X5UNITS SQ SCH (21:41)
[2019-06-07 01:12] LABS: Bilirubin,Urine Negative (Negative); Blood,Urine Large (Negative); Clarity,Urine Cloudy (Clear); Color,Urine Yellow (Yellow); Glucose,Urine (UA) Normal (Normal); Ketones,Urine Negative (Negative); Leukocyte Esterase,Urine Trace (Negative); Nitrite,Urine Negative (Negative); Protein,Urine Trace mg/dL (Neg-Trace); Specific Gravity,Urine 1.012 (1.010-1.025); Urobilinogen,Urine Normal (Normal)
[2019-06-07 01:15] LABS: Bacteria,Urine None Seen per hpf (None-Few); Hyaline Casts,Urine None Seen per lpf (None-Few); RBC,Urine TNTC per hpf (0-3); Squamous Epithelial Cell,Urine None Seen per lpf (None-Few); WBC,Urine 0-3 per hpf (0-3)
[2019-06-07 04:44] LABS: Basophils % 0.5 %; Eosinophils # 0.2 K/mcL (0.0-0.6); Eosinophils % 2.5 %; Hematocrit 42.2 % (37.5-50.1); Hemoglobin 14.1 g/dL (12.9-16.9); Immature Granulocytes % 0.3 % (0-4); Lymphocytes # 1.7 K/mcL (0.6-4.6); Lymphocytes % 21.6 %; Mean Corpuscular HGB Conc 33.4 g/dL (31.6-35.5); Mean Corpuscular Hemoglobin 29.3 pg (28.0-33.3); Mean Corpuscular Volume 87.6 fL (83.0-100.0); Mean Platelet Volume 10.9 fL (9.4-12.4); Monocytes % 13.3 %; Neutrophils # 4.8 K/mcL (1.6-8.9); Platelet Count 193 K/mcL (140-400); Red Blood Count 4.82 M/mcL (4.19-5.50); Segmented Neutrophils % 61.8 %; White Blood Count 7.7 K/mcL (4.3-11.1)
[2019-06-07 06:51] LABS: BUN/Creatinine Ratio 20 (6-26); Blood Urea Nitrogen 16 mg/dL (8-23); Calcium 9.1 mg/dL (8.6-10.3); Carbon Dioxide 26 mEq/L (23-29); Chloride 103 mEq/L (98-107); Glucose 116 mg/dL (70-105); Osmolality,Calculated 294 (280-300); Potassium 3.6 mEq/L (3.5-5.1); Sodium 141 mEq/L (136-145); eGFR For African Americans > 60 (> 60); eGFR For Non-African Americans > 60 (> 60)
[2019-06-07] MEDS: Insulin LISPRO 300 UNITS/3 ML VIAL SQ SCH ×3 (08:37→17:51)
[2019-06-07] MEDS ORDERED: *HR* Metoprolol 5 MG/5 ML VIAL IVP ONE ×2 (08:59→09:00)
[2019-06-07] MEDS: Aspirin 81 MG TAB.CHEW PO SCH (09:05)
[2019-06-07] MEDS: Furosemide 40 MG TABLET PO SCH ×2 (09:07→18:12)
[2019-06-07] MEDS: *HR* Rivaroxaban 10 MG TABLET PO SCH (17:51)
[2019-06-07] MEDS: Insulin DETEMIR 100 UNIT/ML X5UNITS SQ SCH (20:20)
[2019-06-08 07:30] LABS: Basophils % 0.6 %; Eosinophils # 0.2 K/mcL (0.0-0.6); Eosinophils % 2.9 %; Hematocrit 42.7 % (37.5-50.1); Hemoglobin 14.2 g/dL (12.9-16.9); Immature Granulocytes % 0.2 % (0-4); Lymphocytes # 1.6 K/mcL (0.6-4.6); Lymphocytes % 25.8 %; Mean Corpuscular HGB Conc 33.3 g/dL (31.6-35.5); Mean Corpuscular Hemoglobin 28.7 pg (28.0-33.3); Mean Corpuscular Volume 86.4 fL (83.0-100.0); Mean Platelet Volume 11.1 fL (9.4-12.4); Monocytes # 0.8 K/mcL (0.0-1.3); Monocytes % 12.8 %; Neutrophils # 3.6 K/mcL (1.6-8.9); Platelet Count 199 K/mcL (140-400); Red Blood Count 4.94 M/mcL (4.19-5.50); Red Cell Distribution Width 14.1 % (11.5-14.5); Segmented Neutrophils % 57.7 %; White Blood Count 6.3 K/mcL (4.3-11.1)
[2019-06-08 07:35] LABS: BUN/Creatinine Ratio 21 (6-26); Blood Urea Nitrogen 20 mg/dL (8-23); Calcium 9.3 mg/dL (8.6-10.3); Carbon Dioxide 30 mEq/L (23-29); Chloride 102 mEq/L (98-107); Glucose 129 mg/dL (70-105); Magnesium 2.1 mg/dL (1.6-2.6); Osmolality,Calculated 294 (280-300); Potassium 3.6 mEq/L (3.5-5.1); Sodium 140 mEq/L (136-145); eGFR For African Americans > 60 (> 60); eGFR For Non-African Americans > 60 (> 60)
[2019-06-08] MEDS: Insulin LISPRO 300 UNITS/3 ML VIAL SQ SCH ×3 (08:37→17:20)
[2019-06-08] MEDS: Furosemide 40 MG TABLET PO SCH ×2 (09:35→17:20)
[2019-06-08] MEDS: Aspirin 81 MG TAB.CHEW PO SCH (09:38)
[2019-06-08] MEDS: *HR* Rivaroxaban 10 MG TABLET PO SCH (17:19)
[2019-06-08] MEDS: Metoprolol XL (24 HR) Succ 50 MG TAB.ER.24H PO SCH (20:11)
[2019-06-08] MEDS: Insulin DETEMIR 100 UNIT/ML X5UNITS SQ SCH (20:11)
[2019-06-08] MEDS ORDERED: Metoprolol XL (24 HR) Succ 50 MG TAB.ER.24H PO SCH (21:00)
[2019-06-09 02:49] LABS: Hematocrit 41.5 % (37.5-50.1); Hemoglobin 13.6 g/dL (12.9-16.9); Mean Corpuscular HGB Conc 32.8 g/dL (31.6-35.5); Mean Corpuscular Hemoglobin 29.4 pg (28.0-33.3); Mean Corpuscular Volume 89.8 fL (83.0-100.0); Mean Platelet Volume 11.3 fL (9.4-12.4); Platelet Count 218 K/mcL (140-400); Red Blood Count 4.62 M/mcL (4.19-5.50); Red Cell Distribution Width 13.9 % (11.5-14.5); White Blood Count 8.5 K/mcL (4.3-11.1)
[2019-06-09 03:06] LABS: BUN/Creatinine Ratio 23 (6-26); Blood Urea Nitrogen 21 mg/dL (8-23); Calcium 9.1 mg/dL (8.6-10.3); Carbon Dioxide 27 mEq/L (23-29); Chloride 104 mEq/L (98-107); Glucose 137 mg/dL (70-105); Osmolality,Calculated 291 (280-300); Potassium 3.6 mEq/L (3.5-5.1); Sodium 138 mEq/L (136-145); eGFR For African Americans > 60 (> 60); eGFR For Non-African Americans > 60 (> 60)
[2019-06-09] MEDS: Aspirin 81 MG TAB.CHEW PO SCH (07:45)
[2019-06-09] MEDS: Metoprolol XL (24 HR) Succ 50 MG TAB.ER.24H PO SCH ×2 (07:47→20:58)
[2019-06-09] MEDS: Furosemide 40 MG TABLET PO SCH ×2 (07:48→17:16)
[2019-06-09] MEDS: Insulin LISPRO 300 UNITS/3 ML VIAL SQ SCH ×3 (07:51→17:16)
[2019-06-09] MEDS ORDERED: *HR* Metoprolol 5 MG/5 ML VIAL IVP STA ×2 (08:01→12:14)
[2019-06-09] MEDS ORDERED: *HR* Metoprolol 5 MG/5 ML VIAL IVP ONE ×3 (08:04→21:07)
[2019-06-09] MEDS: *HR* Rivaroxaban 10 MG TABLET PO SCH (17:16)
[2019-06-09] MEDS: Insulin DETEMIR 100 UNIT/ML X5UNITS SQ SCH (20:56)
[2019-06-10 04:19] LABS: Hematocrit 44.3 % (37.5-50.1); Hemoglobin 14.9 g/dL (12.9-16.9); Mean Corpuscular HGB Conc 33.6 g/dL (31.6-35.5); Mean Corpuscular Hemoglobin 28.9 pg (28.0-33.3); Mean Corpuscular Volume 85.9 fL (83.0-100.0); Mean Platelet Volume 10.6 fL (9.4-12.4); Platelet Count 214 K/mcL (140-400); Red Blood Count 5.16 M/mcL (4.19-5.50); Red Cell Distribution Width 13.8 % (11.5-14.5)
[2019-06-10 04:45] LABS: BUN/Creatinine Ratio 25 (6-26); Blood Urea Nitrogen 23 mg/dL (8-23); Calcium 9.4 mg/dL (8.6-10.3); Carbon Dioxide 28 mEq/L (23-29); Chloride 102 mEq/L (98-107); Glucose 126 mg/dL (70-105); Osmolality,Calculated 295 (280-300); Potassium 3.5 mEq/L (3.5-5.1); Sodium 140 mEq/L (136-145); eGFR For African Americans > 60 (> 60); eGFR For Non-African Americans > 60 (> 60)
[2019-06-10] MEDS ORDERED: *HR* Metoprolol 5 MG/5 ML VIAL IVP STA (07:55)
[2019-06-10] MEDS ORDERED: *HR* Metoprolol 5 MG/5 ML VIAL IVP ONE (08:05)
[2019-06-10] MEDS: Aspirin 81 MG TAB.CHEW PO SCH (08:12)
[2019-06-10] MEDS: Metoprolol XL (24 HR) Succ 50 MG TAB.ER.24H PO SCH (08:12)
[2019-06-10] MEDS: Furosemide 40 MG TABLET PO SCH (08:12)
[2019-06-10 09:07] VITALS: BP 131/66
[2019-06-10] MEDS ORDERED: Amiodarone Premix 360 MG/200 ML BAG IVC ONE (10:24)
[2019-06-10] MEDS: Insulin LISPRO 300 UNITS/3 ML VIAL SQ SCH (10:34)
== END 2019-06-10 10:54 | disposition short-term general hospital (02) | DRG 308 ==
LOC: EMEROOARM 12:45 → ICNU 12:45 → SUATTDRO 18:01 → 2NENU 06-05 14:34
PROVIDERS: ADMIT Internal Medicine; ATTEND Family Medicine